=== PATIENT | female | born 1940 | race African-American/Black ===

== ENCOUNTER 2018-05-17 23:07 | Inpatient (IN) | payer MEDICARE, OTHER ==
[~2018-05-17] VITALS: Ht 162.6 cm; Wt 83.1 kg
[~2018-05-17 23:07] MED LIST: AMLO10TA12 PO; ATEN-60 PO; BUME2TAB3 PO; CELE200C PO; FERR324T4 PO; FURO80TA3 PO; GLIM1TAB2 PO; GLYB5TAB8 OR; LINA5TAB PO; LOSA-49 PO; METF-371 PO; METO-158 PO; PIOG1TAB36 OR; SIMV-8 PO; TERA5CAP42 PO
[2018-05-18] VITALS (7 sets, daily range): BP systolic 91–126; BP diastolic 46–60
[2018-05-18 00:25] LABS: Hematocrit 25.7 % (36.0-46.0); Hemoglobin 8.3 g/dL (12.2-16.2); Mean Corpuscular Hemoglobin 29.1 pg (28.0-32.0); Mean Corpuscular Hgb Conc. 32.3 g/dL (32.0-36.0); Mean Corpuscular Volume 90.3 fL (80.0-100.0); Platelet Count (auto) 215 10^3/uL (140-450); Red Blood Cells 2.85 10^6/uL (4.0-5.20); Red Cell Distribution Width 16.2 % (11.8-14.3); White Blood Cell 11.8 10^3/uL (4.4-10.8)
[2018-05-18 00:27] LABS: Basophils % (manual) 0 (0.0-2.0); Blast Cells 0; Metamyelocytes % 0; Myelocytes % 0; Promyelocytes % 0; Reactive Lymphocytes 0
[2018-05-18 00:44] LABS: Alanine Aminotransferase 12 U/L (13-56); Albumin 2.9 g/dL (3.4-5.0); Anion Gap 6 (5-15); BUN/Creatinine Ratio 8.8; Blood Urea Nitrogen 20 mg/dL (7-18); Calcium 7.5 mg/dL (8.5-10.1); Carbon Dioxide 28 mmol/L (21-32); Chloride 107 mmol/L (98-107); GFR African American 27 mL/min; GFR Non-African American 22 mL/min; Glucose 247 mg/dL (74-106); INR 1.14 (0.9-1.15); Magnesium 2.1 mg/dL (1.6-2.6); Partial Thromboplastin Time 36.1 sec (23.78-33.04); Potassium 3.5 mmol/L (3.5-5.1); Prothrombin Time 12.1 sec (9.27-12.13); Sodium 141 mmol/L (136-145)
[2018-05-18 00:52] LABS: Alkaline Phosphatase 71 U/L (45-117); Aspartate Aminotransferase 7 U/L (15-37); Bilirubin, Total 0.5 mg/dL (0.2-1.0); Total Protein 6.4 g/dL (6.4-8.2)
[2018-05-18 00:58] LABS: Band Neutrophils % (manual) 4; Eosinophils % (manual) 21 (0-7); Lymphocytes % (manual) 8 (10.0-50.0); Monocytes % (manual) 4 (0-12)
[2018-05-18] MEDS ORDERED: PANTOPRAZOLE 40 MG/10 ML VIAL IV ONE (01:30)
[2018-05-18] MEDS ORDERED: SODIUM CHLORIDE 0.9% 1,000 ML IV ONE (01:30)
[2018-05-18] MEDS ORDERED: cefTRIAXone 1GM/50ML D5W 50 ML IV ONE (03:00)
[2018-05-18] MEDS: metroNIDAZOLE 500 MG TAB PO ONE ×2 (03:00→04:57)
[2018-05-18] MEDS ORDERED: ALBUMIN 5% 250 ML IV ONE (05:00)
[2018-05-18] MEDS ORDERED: MORPHINE SULF INJ 2 MG/ML SYRINGE 1ML IV PRN (05:00)
[2018-05-18] MEDS ORDERED: NITROGLYCERIN 0.4 MG SL TAB SL PRN (05:00)
[2018-05-18] MEDS: SODIUM CHLORIDE 0.9% 1,000 ML IV SCH (05:00)
[2018-05-18] MEDS ORDERED: ACETAMINOPHEN 325 MG TAB PO PRN (05:00)
[2018-05-18] MEDS ORDERED: DEXTROSE (50%) 50ML SYRG IV PRN (05:00)
[2018-05-18] MEDS: metroNIDAZOLE 500MG/100ML 100 ML IV SCH ×3 (06:00→22:00)
[2018-05-18 06:25] LABS: Hematocrit 19.8 % (36.0-46.0)
[2018-05-18 06:29] LABS: Hemoglobin 6.5 g/dL (12.2-16.2)
[2018-05-18] MEDS: HYDROcodone-ACET 5/325MG TAB PO PRN (07:26)
[2018-05-18] MEDS: ACCU-CHEK COMFORT CURVE STRIP VI SCH ×4 (07:26→23:54)
[2018-05-18] MEDS: InsuLIN REG 1unit/0.01ml Soln (100units/ml) SC SCH ×4 (07:28→23:54)
[2018-05-18] MEDS ORDERED: OCTREOTIDE ACETATE 500 MCG in SODIUM CHL 0.9% 99 ML IV SCH (07:45)
[2018-05-18] MEDS: cefTRIAXone 1GM/50ML D5W 50 ML IV SCH (09:47)
[2018-05-18] MEDS ORDERED: PANTOPRAZOLE 40 MG/10 ML VIAL IV SCH (10:00)
[2018-05-18] MEDS: PANTOPRAZOLE 40 MG/10 ML VIAL IV SCH ×2 (10:23→22:00)
[2018-05-18 13:20] LABS: Hematocrit 26.7 % (36.0-46.0); Hemoglobin 8.3 g/dL (12.2-16.2)
[2018-05-18 18:53] LABS: Hematocrit 25.6 % (36.0-46.0); Hemoglobin 8.2 g/dL (12.2-16.2)
[2018-05-19] VITALS (15 sets, daily range): BP systolic 113–175; BP diastolic 49–77
[2018-05-19 01:06] LABS: Hemoglobin 6.4 g/dL (12.2-16.2)
[2018-05-19] MEDS: SODIUM CHLORIDE 0.9% 1,000 ML IV SCH (04:00)
[2018-05-19] MEDS: InsuLIN REG 1unit/0.01ml Soln (100units/ml) SC SCH ×3 (06:00→17:54)
[2018-05-19] MEDS: ACCU-CHEK COMFORT CURVE STRIP VI SCH ×3 (06:00→17:54)
[2018-05-19] MEDS: metroNIDAZOLE 500MG/100ML 100 ML IV SCH ×3 (06:49→22:30)
[2018-05-19 08:42] LABS: Basophils # (auto) 0.1 uL; Eosinophils # (auto) 2.2 uL; Hematocrit 24.5 % (36.0-46.0); Hemoglobin 7.9 g/dL (12.2-16.2); Lymphocytes # (auto) 1.8 uL; Monocytes # (auto) 0.9 uL; Monocytes % (auto) 6.4 % (0.0-12.0); Red Blood Cells 2.73 10^6/uL (4.0-5.20)
[2018-05-19 08:44] LABS: Basophils % (auto) 0.5 % (0.0-2.0); Eosinophils % (auto) 14.9 % (0.0-7.0); Lymphocytes % (auto) 12.4 % (10.0-50.0); Mean Corpuscular Hemoglobin 28.9 pg (28.0-32.0); Mean Corpuscular Hgb Conc. 32.2 g/dL (32.0-36.0); Mean Corpuscular Volume 89.6 fL (80.0-100.0); Neutrophils # (auto) 9.6 uL; Neutrophils % (auto) 65.8 % (37.0-80.0); Platelet Count (auto) 227 10^3/uL (140-450); Red Cell Distribution Width 15.6 % (11.8-14.3); White Blood Cell 14.5 10^3/uL (4.4-10.8)
[2018-05-19 08:54] LABS: Albumin 2.6 g/dL (3.4-5.0); Calcium 7.3 mg/dL (8.5-10.1); Potassium 3.9 mmol/L (3.5-5.1)
[2018-05-19 08:58] LABS: BUN/Creatinine Ratio 7.9; Bilirubin, Total 0.4 mg/dL (0.2-1.0); Total Protein 5.5 g/dL (6.4-8.2)
[2018-05-19] MEDS: cefTRIAXone 1GM/50ML D5W 50 ML IV SCH (10:29)
[2018-05-19] MEDS: PANTOPRAZOLE 40 MG/10 ML VIAL IV SCH ×2 (10:29→22:30)
[2018-05-19 14:35] LABS: Hematocrit 23.2 % (36.0-46.0); Hemoglobin 7.4 g/dL (12.2-16.2)
[2018-05-20] VITALS (10 sets, daily range): BP systolic 128–176; BP diastolic 62–73
[2018-05-20] MEDS: InsuLIN REG 1unit/0.01ml Soln (100units/ml) SC SCH ×4 (00:30→17:58)
[2018-05-20] MEDS: ACCU-CHEK COMFORT CURVE STRIP VI SCH ×4 (00:30→17:58)
[2018-05-20] MEDS: HYDROcodone-ACET 5/325MG TAB PO PRN (00:50)
[2018-05-20] MEDS: ONDANSETRON HCL 4 MG/2 ML VIAL IV PRN ×2 (04:52→16:40)
[2018-05-20] MEDS: metroNIDAZOLE 500MG/100ML 100 ML IV SCH ×3 (06:00→22:26)
[2018-05-20 06:57] LABS: White Blood Cell 13.4 10^3/uL (4.4-10.8)
[2018-05-20 06:59] LABS: Hematocrit 23.7 % (36.0-46.0); Hemoglobin 7.9 g/dL (12.2-16.2); Mean Corpuscular Hgb Conc. 33.3 g/dL (32.0-36.0); Mean Corpuscular Volume 90.1 fL (80.0-100.0); Platelet Count (auto) 177 10^3/uL (140-450); Red Blood Cells 2.63 10^6/uL (4.0-5.20); Red Cell Distribution Width 15.2 % (11.8-14.3)
[2018-05-20 07:00] LABS: Band Neutrophils % (manual) 0; Basophils % (manual) 0 (0.0-2.0); Blast Cells 0; Metamyelocytes % 0; Myelocytes % 0; Promyelocytes % 0; Reactive Lymphocytes 0
[2018-05-20] MEDS ORDERED: SODIUM CHL 0.9% 1000 ML BAG XX ONE (07:00)
[2018-05-20 07:29] LABS: Calcium 7.1 mg/dL (8.5-10.1); Potassium 3.8 mmol/L (3.5-5.1)
[2018-05-20] MEDS: cefTRIAXone 1GM/50ML D5W 50 ML IV SCH ×2 (08:40→09:35)
[2018-05-20] MEDS: PANTOPRAZOLE 40 MG/10 ML VIAL IV SCH ×3 (08:41→22:26)
[2018-05-20 11:48] LABS: Eosinophils % (manual) 18 (0-7); Lymphocytes % (manual) 10 (10.0-50.0); Monocytes % (manual) 2 (0-12)
[2018-05-20] MEDS ORDERED: EPOETIN ALFA 10,000 UNIT/1 ML VIAL SC ONE (21:00)
[2018-05-21] MEDS: ACCU-CHEK COMFORT CURVE STRIP VI SCH ×5 (00:36→23:13)
[2018-05-21 05:00] VITALS: BP 145/63
[2018-05-21] MEDS: metroNIDAZOLE 500MG/100ML 100 ML IV SCH ×3 (06:39→21:24)
[2018-05-21] MEDS: InsuLIN REG 1unit/0.01ml Soln (100units/ml) SC SCH ×5 (06:45→23:13)
[2018-05-21 07:09] LABS: Blood Urea Nitrogen 22 mg/dL (7-18); Calcium 7.4 mg/dL (8.5-10.1); Chloride 111 mmol/L (98-107); Potassium 4.2 mmol/L (3.5-5.1); Sodium 142 mmol/L (136-145)
[2018-05-21 07:13] LABS: Anion Gap 7 (5-15); BUN/Creatinine Ratio 6.9; Carbon Dioxide 24 mmol/L (21-32); GFR African American 18 mL/min; GFR Non-African American 15 mL/min; Glucose 153 mg/dL (74-106)
[2018-05-21 07:18] LABS: Hematocrit 23.6 % (36.0-46.0); Hemoglobin 7.1 g/dL (12.2-16.2); Mean Corpuscular Hemoglobin 29.7 pg (28.0-32.0); Mean Corpuscular Volume 98.7 fL (80.0-100.0); Platelet Count (auto) 149 10^3/uL (140-450); Red Cell Distribution Width 16.8 % (11.8-14.3); White Blood Cell 10.5 10^3/uL (4.4-10.8)
[2018-05-21 07:25] LABS: Band Neutrophils % (manual) 0; Basophils % (manual) 0 (0.0-2.0); Blast Cells 0; Metamyelocytes % 0; Myelocytes % 0; Promyelocytes % 0; Reactive Lymphocytes 0
[2018-05-21 08:00] VITALS: BP 155/67
[2018-05-21 09:00] VITALS: BP 155/67
[2018-05-21] MEDS: PANTOPRAZOLE 40 MG/10 ML VIAL IV SCH ×2 (09:13→21:24)
[2018-05-21] MEDS: cefTRIAXone 1GM/50ML D5W 50 ML IV SCH (09:18)
[2018-05-21 12:31] LABS: Lymphocytes % (manual) 14 (10.0-50.0); Monocytes % (manual) 3 (0-12)
[2018-05-21 12:32] LABS: Eosinophils % (manual) 24 (0-7)
[2018-05-21 13:00] VITALS: BP 154/80
[2018-05-21 17:00] VITALS: BP 164/87
[2018-05-21 21:31] LABS: Hematocrit 21.1 % (36.0-46.0); Hemoglobin 7.1 g/dL (12.2-16.2)
[2018-05-21 22:56] VITALS: BP 166/78
[2018-05-22] VITALS (10 sets, daily range): BP systolic 144–182; BP diastolic 64–88
[2018-05-22] MEDS: cloNIDine HCL 0.1 MG TAB PO PRN (04:41)
[2018-05-22] MEDS: metroNIDAZOLE 500MG/100ML 100 ML IV SCH ×2 (05:37→16:25)
[2018-05-22] MEDS: ACCU-CHEK COMFORT CURVE STRIP VI SCH ×3 (05:38→18:38)
[2018-05-22] MEDS: InsuLIN REG 1unit/0.01ml Soln (100units/ml) SC SCH ×3 (05:38→18:38)
[2018-05-22 07:14] LABS: BUN/Creatinine Ratio 6.3; Calcium 7.3 mg/dL (8.5-10.1); Potassium 4.1 mmol/L (3.5-5.1)
[2018-05-22 07:19] LABS: Mean Corpuscular Volume 90.1 fL (80.0-100.0); Red Cell Distribution Width 15.3 % (11.8-14.3); White Blood Cell 8.7 10^3/uL (4.4-10.8)
[2018-05-22 07:22] LABS: Hematocrit 18.2 % (36.0-46.0); Mean Corpuscular Hemoglobin 30.1 pg (28.0-32.0); Mean Corpuscular Hgb Conc. 33.4 g/dL (32.0-36.0); Platelet Count (auto) 154 10^3/uL (140-450); Red Blood Cells 2.02 10^6/uL (4.0-5.20)
[2018-05-22 07:35] LABS: Basophils % (manual) 0 (0.0-2.0); Blast Cells 0; Hemoglobin 6.1 g/dL (12.2-16.2); Metamyelocytes % 0; Promyelocytes % 0; Reactive Lymphocytes 0
[2018-05-22] MEDS ORDERED: HYDROcodone-ACET 5/325MG TAB PO PRN (09:30)
[2018-05-22 09:33] LABS: Band Neutrophils % (manual) 1; Eosinophils % (manual) 29 (0-7); Lymphocytes % (manual) 19 (10.0-50.0); Monocytes % (manual) 8 (0-12); Myelocytes % 2
[2018-05-22] MEDS ORDERED: MORPHINE SULF INJ 2 MG/ML SYRINGE 1ML IV PRN (10:00)
[2018-05-22] MEDS ORDERED: GOLYTELY 4L KIT PO ONE (10:15)
[2018-05-22] MEDS: cefTRIAXone 1GM/50ML D5W 50 ML IV SCH (10:44)
[2018-05-22] MEDS: PANTOPRAZOLE 40 MG/10 ML VIAL IV SCH (10:44)
[2018-05-22] MEDS: ONDANSETRON HCL 4 MG/2 ML VIAL IV PRN (23:25)
[2018-05-23] VITALS (7 sets, daily range): BP systolic 126–164; BP diastolic 48–79
[2018-05-23] MEDS: PANTOPRAZOLE 40 MG/10 ML VIAL IV SCH ×3 (00:10→21:42)
[2018-05-23] MEDS: metroNIDAZOLE 500MG/100ML 100 ML IV SCH ×4 (00:11→21:53)
[2018-05-23] MEDS: InsuLIN REG 1unit/0.01ml Soln (100units/ml) SC SCH ×5 (00:26→23:36)
[2018-05-23] MEDS: ACCU-CHEK COMFORT CURVE STRIP VI SCH ×5 (00:26→23:36)
[2018-05-23 06:55] LABS: Basophils # (auto) 0 uL; Basophils % (auto) 0.5 % (0.0-2.0); Hemoglobin 7.2 g/dL (12.2-16.2); Monocytes # (auto) 0.1 uL; Neutrophils # (auto) 7.9 uL; Neutrophils % (auto) 89.7 % (37.0-80.0)
[2018-05-23 06:57] LABS: Eosinophils # (auto) 0 uL; Eosinophils % (auto) 0.5 % (0.0-7.0); Lymphocytes # (auto) 0.8 uL; Lymphocytes % (auto) 8.6 % (10.0-50.0); Mean Corpuscular Hemoglobin 29.4 pg (28.0-32.0); Mean Corpuscular Hgb Conc. 32.8 g/dL (32.0-36.0); Mean Corpuscular Volume 89.6 fL (80.0-100.0); Monocytes % (auto) 0.7 % (0.0-12.0); Nucleated Red Blood Cells % 0.3 %; Platelet Count (auto) 154 10^3/uL (140-450); Red Blood Cells 2.46 10^6/uL (4.0-5.20); Red Cell Distribution Width 16.1 % (11.8-14.3); White Blood Cell 8.9 10^3/uL (4.4-10.8)
[2018-05-23] MEDS ORDERED: SODIUM CHL 0.9% 1000 ML BAG XX ONE (07:00)
[2018-05-23 07:12] LABS: Calcium 7.1 mg/dL (8.5-10.1); Potassium 5.2 mmol/L (3.5-5.1)
[2018-05-23 07:14] LABS: BUN/Creatinine Ratio 5.9
[2018-05-23] MEDS: cefTRIAXone 1GM/50ML D5W 50 ML IV SCH (09:53)
[2018-05-23] MEDS ORDERED: DexAMETHasone SOD PHOS 10MG/1ML VIAL INJ ONE (11:57)
[2018-05-23] MEDS ORDERED: fentaNYL CITRATE 100 MCG/2 ML VL ONE (11:57)
[2018-05-23] MEDS ORDERED: MIDAZOLAM HCL 1MG/1ML-2 ML VIAL ONE (11:57)
[2018-05-23] MEDS ORDERED: PROPOFOL 10 MG/ML 20 ML IV ONE (11:57)
[2018-05-23] MEDS ORDERED: ACCU-CHEK COMFORT CURVE STRIP VI ONE (13:30)
[2018-05-23] MEDS ORDERED: ePHEDrine SULFATE 50 MG/ML AMP IV PRN (13:30)
[2018-05-23] MEDS ORDERED: ONDANSETRON HCL 4 MG/2 ML VIAL IV ONE (13:30)
[2018-05-23] MEDS ORDERED: HYDROmorphone HCL 2 MG/ML VL IV PRN (13:30)
[2018-05-23] MEDS ORDERED: LABETALOL HCL 5 MG/ML 4ML SYRINGE IV PRN (13:30)
[2018-05-23] MEDS ORDERED: MIDAZOLAM HCL 1MG/1ML-2 ML VIAL IV PRN (13:30)
[2018-05-23] MEDS ORDERED: KETOROLAC TROMETH 30 MG/ML 1ML VIAL IV ONE (13:30)
[2018-05-23] MEDS ORDERED: MORPHINE SULFATE 4 MG/ML SYR/VIAL IV ONE (14:00)
[2018-05-23] MEDS ORDERED: InsuLIN REG 1unit/0.01ml Soln (100units/ml) IV ONE (16:45)
[2018-05-23] MEDS ORDERED: DEXTROSE (50%) 50ML SYRG IV ONE (16:45)
[2018-05-23] MEDS ORDERED: EPOETIN ALFA 10,000 UNIT/1 ML VIAL SC ONE (21:00)
[2018-05-23] MEDS: cloNIDine HCL 0.1 MG TAB PO PRN (21:53)
[2018-05-24] VITALS (11 sets, daily range): BP systolic 131–178; BP diastolic 64–93
[2018-05-24] MEDS: metroNIDAZOLE 500MG/100ML 100 ML IV SCH ×3 (06:08→21:56)
[2018-05-24] MEDS: InsuLIN REG 1unit/0.01ml Soln (100units/ml) SC SCH ×4 (06:09→23:37)
[2018-05-24] MEDS: ACCU-CHEK COMFORT CURVE STRIP VI SCH ×4 (06:09→23:37)
[2018-05-24 08:29] LABS: Basophils # (auto) 0.1 uL; Eosinophils # (auto) 0.1 uL; Monocytes # (auto) 0.6 uL; Nucleated Red Blood Cells % 0.3 %; Platelet Count (auto) 201 10^3/uL (140-450)
[2018-05-24 08:30] LABS: Basophils % (auto) 0.9 % (0.0-2.0); Hematocrit 18.3 % (36.0-46.0); Lymphocytes # (auto) 1.5 uL; Lymphocytes % (auto) 14.2 % (10.0-50.0); Mean Corpuscular Hemoglobin 30.6 pg (28.0-32.0); Mean Corpuscular Hgb Conc. 33.4 g/dL (32.0-36.0); Mean Corpuscular Volume 91.5 fL (80.0-100.0); Neutrophils # (auto) 8.3 uL; Neutrophils % (auto) 77.9 % (37.0-80.0); Red Cell Distribution Width 16.5 % (11.8-14.3); White Blood Cell 10.6 10^3/uL (4.4-10.8)
[2018-05-24] MEDS ORDERED: SODIUM CHL 0.9% 1000 ML BAG XX ONE (08:30)
[2018-05-24 08:35] LABS: Hemoglobin 6.1 g/dL (12.2-16.2)
[2018-05-24 08:47] LABS: BUN/Creatinine Ratio 6.4; Calcium 7.5 mg/dL (8.5-10.1); Potassium 4.6 mmol/L (3.5-5.1)
[2018-05-24] MEDS: cefTRIAXone 1GM/50ML D5W 50 ML IV SCH (09:31)
[2018-05-24] MEDS: PANTOPRAZOLE 40 MG/10 ML VIAL IV SCH ×2 (09:31→21:56)
[2018-05-24] MEDS ORDERED: EPOETIN ALFA 10,000 UNIT/1 ML VIAL SC ONE (21:00)
[2018-05-24 21:13] LABS: Hematocrit 26.8 % (36.0-46.0); Hemoglobin 8.7 g/dL (12.2-16.2)
[2018-05-24] MEDS: cloNIDine HCL 0.1 MG TAB PO PRN (22:42)
[2018-05-25 04:50] VITALS: BP 167/77
[2018-05-25] MEDS: InsuLIN REG 1unit/0.01ml Soln (100units/ml) SC SCH ×4 (06:00→23:23)
[2018-05-25] MEDS: ACCU-CHEK COMFORT CURVE STRIP VI SCH ×4 (06:14→23:23)
[2018-05-25] MEDS ORDERED: CATHFLO ACTIVASE (ALTEPLASE) 2 MG VIAL IV ONE ×2 (06:15→14:30)
[2018-05-25] MEDS: metroNIDAZOLE 500MG/100ML 100 ML IV SCH ×3 (07:01→21:44)
[2018-05-25 07:50] VITALS: BP 161/73
[2018-05-25] MEDS: cefTRIAXone 1GM/50ML D5W 50 ML IV SCH (08:41)
[2018-05-25] MEDS ORDERED: amLODIPine BESYLATE 5 MG TAB PO ONE (10:45)
[2018-05-25] MEDS ORDERED: LORazepam 0.5 MG TAB PO ONE (10:45)
[2018-05-25] MEDS ORDERED: MORPHINE SULF INJ 2 MG/ML SYRINGE 1ML IV PRN (11:00)
[2018-05-25 11:43] VITALS: BP 163/79
[2018-05-25 13:34] LABS: Hemoglobin 7.8 g/dL (12.2-16.2); Red Cell Distribution Width 16.4 % (11.8-14.3)
[2018-05-25 13:35] LABS: Hematocrit 23.5 % (36.0-46.0); Mean Corpuscular Hemoglobin 30.5 pg (28.0-32.0); Mean Corpuscular Hgb Conc. 33.1 g/dL (32.0-36.0); Mean Corpuscular Volume 92.2 fL (80.0-100.0); Platelet Count (auto) 72 10^3/uL (140-450); Red Blood Cells 2.54 10^6/uL (4.0-5.20); White Blood Cell 11.7 10^3/uL (4.4-10.8)
[2018-05-25 13:43] LABS: Basophils % (manual) 0 (0.0-2.0); Blast Cells 0; Metamyelocytes % 0; Myelocytes % 0; Promyelocytes % 0; Reactive Lymphocytes 0
[2018-05-25] MEDS ORDERED: LORazepam 0.5 MG TAB PO PRN (14:00)
[2018-05-25 14:08] LABS: Band Neutrophils % (manual) 1; Eosinophils % (manual) 13 (0-7); Lymphocytes % (manual) 14 (10.0-50.0); Monocytes % (manual) 3 (0-12)
[2018-05-25] MEDS ORDERED: GOLYTELY 4L KIT PO ONE (14:30)
[2018-05-25] MEDS ORDERED: IOHEXOL 350 MG/ML 100ML IJ ONE (16:18)
[2018-05-25 16:38] VITALS: BP 159/93
[2018-05-25] MEDS: cloNIDine HCL 0.1 MG TAB PO PRN (21:07)
[2018-05-25 22:00] VITALS: BP 183/80
[2018-05-25 22:21] VITALS: BP 159/63
[2018-05-25 22:42] LABS: Albumin 2.6 g/dL (3.4-5.0); Potassium 4.1 mmol/L (3.5-5.1)
[2018-05-25 22:43] LABS: INR 1.07 (0.9-1.15); Partial Thromboplastin Time 23.8 sec (23.78-33.04); Prothrombin Time 11.4 sec (9.27-12.13)
[2018-05-25 22:45] LABS: BUN/Creatinine Ratio 5.1; Bilirubin, Total 0.3 mg/dL (0.2-1.0); Total Protein 4.6 g/dL (6.4-8.2)
[2018-05-26] VITALS (8 sets, daily range): BP systolic 144–186; BP diastolic 65–77
[2018-05-26] MEDS: InsuLIN REG 1unit/0.01ml Soln (100units/ml) SC SCH ×3 (06:00→18:00)
[2018-05-26] MEDS: ACCU-CHEK COMFORT CURVE STRIP VI SCH ×3 (06:09→18:00)
[2018-05-26] MEDS: metroNIDAZOLE 500MG/100ML 100 ML IV SCH ×3 (06:09→22:18)
[2018-05-26 06:29] LABS: Basophils # (auto) 0.1 uL
[2018-05-26 06:59] LABS: % Iron Saturation 30.6 % (15-50)
[2018-05-26] MEDS ORDERED: SODIUM CHL 0.9% 1000 ML BAG XX ONE (07:00)
[2018-05-26 07:32] LABS: Monocytes # (auto) 0.7 uL
[2018-05-26 07:37] LABS: Basophils % (auto) 1.2 % (0.0-2.0); Eosinophils # (auto) 2.3 uL; Hematocrit 21.2 % (36.0-46.0); Lymphocytes # (auto) 1.2 uL; Lymphocytes % (auto) 11.1 % (10.0-50.0); Mean Corpuscular Hemoglobin 30.1 pg (28.0-32.0); Mean Corpuscular Volume 91.2 fL (80.0-100.0); Monocytes % (auto) 6.7 % (0.0-12.0); Neutrophils # (auto) 6.7 uL; Neutrophils % (auto) 60.6 % (37.0-80.0); Nucleated Red Blood Cells % 0.3 %; Platelet Count (auto) 199 10^3/uL (140-450); Red Blood Cells 2.33 10^6/uL (4.0-5.20); Red Cell Distribution Width 16.1 % (11.8-14.3); White Blood Cell 11.1 10^3/uL (4.4-10.8)
[2018-05-26 07:52] LABS: Eosinophils % (auto) 20.4 % (0.0-7.0)
[2018-05-26] MEDS ORDERED: MIDAZOLAM HCL 5 MG/ML-1ML VIAL ONE (08:33)
[2018-05-26] MEDS ORDERED: SODIUM CHLORIDE LOCK 10 ML ONE (08:33)
[2018-05-26] MEDS ORDERED: fentaNYL CITRATE 100 MCG/2 ML VL ONE (08:33)
[2018-05-26] MEDS ORDERED: diphenhdrAMINE HCL 50 MG/1 ML VL ONE ×2 (08:33→09:24)
[2018-05-26] MEDS: cefTRIAXone 1GM/50ML D5W 50 ML IV SCH (09:00)
[2018-05-26] MEDS ORDERED: HYDROmorphone HCL 2 MG/ML VL IV PRN (09:15)
[2018-05-26] MEDS ORDERED: ONDANSETRON HCL 4 MG/2 ML VIAL IV ONE (09:15)
[2018-05-26] MEDS ORDERED: ACCU-CHEK COMFORT CURVE STRIP VI ONE (09:15)
[2018-05-26] MEDS ORDERED: NALOXONE HCL 0.4 MG/ML VIAL IV PRN (09:15)
[2018-05-26] MEDS ORDERED: MIDAZOLAM HCL 1MG/1ML-2 ML VIAL ONE (09:24)
[2018-05-26] MEDS ORDERED: LIDOCAINE 2% (LOCAL ANESTH.) PF 5ml SDV ONE (09:24)
[2018-05-26] MEDS ORDERED: METOCLOPRAMIDE HCL 5MG/ml INJ 2ml VIAL ONE (09:24)
[2018-05-26] MEDS ORDERED: GLYCOPYRROLATE 0.2 MG/ML 1ML VIAL ONE (09:24)
[2018-05-26] MEDS ORDERED: PROPOFOL 10 MG/ML 20 ML IV ONE (09:26)
[2018-05-26] MEDS: amLODIPine BESYLATE 5 MG TAB PO SCH (10:00)
[2018-05-26] MEDS: PANTOPRAZOLE 40 MG TAB PO SCH (10:00)
[2018-05-26] MEDS: cloNIDine HCL 0.1 MG TAB PO PRN ×2 (13:31→22:09)
[2018-05-26] MEDS ORDERED: EPOETIN ALFA 10,000 UNIT/1 ML VIAL SC ONE (21:00)
[2018-05-27] VITALS (7 sets, daily range): BP systolic 132–197; BP diastolic 68–89
[2018-05-27] MEDS: ACCU-CHEK COMFORT CURVE STRIP VI SCH ×4 (00:21→18:00)
[2018-05-27] MEDS: cloNIDine HCL 0.1 MG TAB PO PRN ×3 (02:36→22:16)
[2018-05-27] MEDS ORDERED: hydrALAZINE HCL 20 MG/ML VL IV ONE (04:00)
[2018-05-27] MEDS: InsuLIN REG 1unit/0.01ml Soln (100units/ml) SC SCH ×4 (06:00→18:00)
[2018-05-27] MEDS: metroNIDAZOLE 500MG/100ML 100 ML IV SCH ×3 (06:38→22:17)
[2018-05-27 06:57] LABS: Basophils # (auto) 0.1 uL; Basophils % (auto) 1.3 % (0.0-2.0); Eosinophils # (auto) 1.3 uL; Eosinophils % (auto) 12.7 % (0.0-7.0); Hematocrit 29.8 % (36.0-46.0); Hemoglobin 10.1 g/dL (12.2-16.2); Lymphocytes # (auto) 1.2 uL; Mean Corpuscular Hemoglobin 30.1 pg (28.0-32.0); Mean Corpuscular Hgb Conc. 33.9 g/dL (32.0-36.0); Mean Corpuscular Volume 88.7 fL (80.0-100.0); Monocytes # (auto) 0.6 uL; Monocytes % (auto) 5.2 % (0.0-12.0); Neutrophils # (auto) 7.3 uL; Neutrophils % (auto) 69.8 % (37.0-80.0); Nucleated Red Blood Cells % 0.1 %; Platelet Count (auto) 192 10^3/uL (140-450); Red Blood Cells 3.35 10^6/uL (4.0-5.20); Red Cell Distribution Width 15.8 % (11.8-14.3); White Blood Cell 10.5 10^3/uL (4.4-10.8)
[2018-05-27] MEDS: cefTRIAXone 1GM/50ML D5W 50 ML IV SCH (10:21)
[2018-05-27] MEDS: amLODIPine BESYLATE 5 MG TAB PO SCH (10:22)
[2018-05-27] MEDS: PANTOPRAZOLE 40 MG TAB PO SCH (10:22)
[2018-05-27 22:05] LABS: Hematocrit 31.2 % (36.0-46.0); Hemoglobin 10.4 g/dL (12.2-16.2)
[2018-05-27] MEDS: HYDROcodone-ACET 5/325MG TAB PO PRN (22:17)
[2018-05-28] MEDS: ACCU-CHEK COMFORT CURVE STRIP VI SCH ×4 (00:04→17:38)
[2018-05-28] MEDS ORDERED: hydrALAZINE HCL 20 MG/ML VL IV ONE (00:45)
[2018-05-28] MEDS: InsuLIN REG 1unit/0.01ml Soln (100units/ml) SC SCH ×4 (00:53→17:38)
[2018-05-28 05:49] VITALS: BP 175/57
[2018-05-28] MEDS: metroNIDAZOLE 500MG/100ML 100 ML IV SCH ×3 (06:11→22:37)
[2018-05-28] MEDS: cloNIDine HCL 0.1 MG TAB PO PRN (06:15)
[2018-05-28] MEDS: HYDROcodone-ACET 5/325MG TAB PO PRN ×3 (06:17→22:52)
[2018-05-28 09:00] VITALS: BP 156/56
[2018-05-28] MEDS: cefTRIAXone 1GM/50ML D5W 50 ML IV SCH (09:00)
[2018-05-28 09:03] LABS: Hematocrit 28.2 % (36.0-46.0); Hemoglobin 9.6 g/dL (12.2-16.2); Mean Corpuscular Hemoglobin 30.4 pg (28.0-32.0); Mean Corpuscular Volume 89.6 fL (80.0-100.0); Platelet Count (auto) 194 10^3/uL (140-450); Red Blood Cells 3.15 10^6/uL (4.0-5.20); Red Cell Distribution Width 17.1 % (11.8-14.3); White Blood Cell 9.5 10^3/uL (4.4-10.8)
[2018-05-28 09:14] LABS: Band Neutrophils % (manual) 0; Basophils % (manual) 0 (0.0-2.0); Blast Cells 0; Metamyelocytes % 0; Myelocytes % 0; Promyelocytes % 0; Reactive Lymphocytes 0
[2018-05-28 09:26] LABS: BUN/Creatinine Ratio 4.3; Calcium 7.1 mg/dL (8.5-10.1); Potassium 3.6 mmol/L (3.5-5.1)
[2018-05-28 09:43] LABS: Lymphocytes % (manual) 12 (10.0-50.0); Monocytes % (manual) 2 (0-12)
[2018-05-28 09:44] LABS: Eosinophils % (manual) 18 (0-7)
[2018-05-28] MEDS: PANTOPRAZOLE 40 MG TAB PO SCH (10:00)
[2018-05-28] MEDS: amLODIPine BESYLATE 5 MG TAB PO SCH (10:00)
[2018-05-28 13:00] VITALS: BP 135/66
[2018-05-28 17:00] VITALS: BP 158/93
[2018-05-28 22:00] VITALS: BP 159/71
[2018-05-29] MEDS: ACCU-CHEK COMFORT CURVE STRIP VI SCH ×4 (00:08→18:09)
[2018-05-29 05:00] VITALS: BP 158/60
[2018-05-29] MEDS: InsuLIN REG 1unit/0.01ml Soln (100units/ml) SC SCH ×4 (06:00→18:09)
[2018-05-29] MEDS: metroNIDAZOLE 500MG/100ML 100 ML IV SCH ×3 (06:13→22:04)
[2018-05-29 08:34] VITALS: BP 185/76
[2018-05-29] MEDS ORDERED: MORPHINE SULF INJ 2 MG/ML SYRINGE 1ML IV PRN (09:30)
[2018-05-29 09:45] LABS: Basophils # (auto) 0.1 uL; Basophils % (auto) 0.9 % (0.0-2.0); Eosinophils # (auto) 1.2 uL; Eosinophils % (auto) 11.4 % (0.0-7.0); Hematocrit 31.2 % (36.0-46.0); Hemoglobin 10.3 g/dL (12.2-16.2); Lymphocytes # (auto) 0.9 uL; Lymphocytes % (auto) 8.2 % (10.0-50.0); Mean Corpuscular Hemoglobin 29.6 pg (28.0-32.0); Mean Corpuscular Hgb Conc. 32.9 g/dL (32.0-36.0); Mean Corpuscular Volume 90.2 fL (80.0-100.0); Monocytes # (auto) 0.7 uL; Monocytes % (auto) 6.2 % (0.0-12.0); Neutrophils # (auto) 7.8 uL; Neutrophils % (auto) 73.3 % (37.0-80.0); Platelet Count (auto) 223 10^3/uL (140-450); Red Blood Cells 3.46 10^6/uL (4.0-5.20); Red Cell Distribution Width 17.5 % (11.8-14.3); White Blood Cell 10.6 10^3/uL (4.4-10.8)
[2018-05-29] MEDS ORDERED: METOPROLOL TARTRATE 25 MG TAB PO SCH (10:00)
[2018-05-29 10:12] LABS: Albumin 2.5 g/dL (3.4-5.0); BUN/Creatinine Ratio 3.2; Calcium 7.4 mg/dL (8.5-10.1); Potassium 3.3 mmol/L (3.5-5.1)
[2018-05-29 10:15] LABS: Bilirubin, Total 0.5 mg/dL (0.2-1.0); Total Protein 5.3 g/dL (6.4-8.2)
[2018-05-29] MEDS: amLODIPine BESYLATE 5 MG TAB PO SCH (10:56)
[2018-05-29] MEDS: PANTOPRAZOLE 40 MG TAB PO SCH (10:57)
[2018-05-29] MEDS: HYDROcodone-ACET 5/325MG TAB PO PRN ×2 (11:00→18:41)
[2018-05-29] MEDS ORDERED: POTASSIUM CHL 20 Meq TABLET PO ONE (11:45)
[2018-05-29 12:04] VITALS: BP 116/77
[2018-05-29 16:58] VITALS: BP 163/79
[2018-05-29] MEDS: cloNIDine HCL 0.1 MG TAB PO PRN (18:10)
[2018-05-29 22:00] VITALS: BP 153/67
[2018-05-30] MEDS: ACCU-CHEK COMFORT CURVE STRIP VI SCH ×4 (00:04→18:00)
[2018-05-30] MEDS: HYDROcodone-ACET 5/325MG TAB PO PRN ×5 (00:08→16:32)
[2018-05-30 05:00] VITALS: BP 150/81
[2018-05-30] MEDS: InsuLIN REG 1unit/0.01ml Soln (100units/ml) SC SCH ×4 (05:38→18:00)
[2018-05-30] MEDS: metroNIDAZOLE 500MG/100ML 100 ML IV SCH ×2 (05:38→14:34)
[2018-05-30 09:00] VITALS: BP 177/77
[2018-05-30] MEDS ORDERED: cefTRIAXone 1GM/50ML D5W 50 ML IV SCH (09:00)
[2018-05-30] MEDS: amLODIPine BESYLATE 5 MG TAB PO SCH (09:56)
[2018-05-30] MEDS: PANTOPRAZOLE 40 MG TAB PO SCH (09:57)
[2018-05-30 10:30] LABS: Hematocrit 31.6 % (36.0-46.0); Hemoglobin 10.3 g/dL (12.2-16.2)
[2018-05-30 13:00] VITALS: BP 112/76
[2018-05-30] MEDS ORDERED: cloNIDine HCL 0.1 MG TAB PO SCH (14:00)
[2018-05-30 18:56] VITALS: BP 112/76
== END 2018-05-30 20:30 | disposition short-term general hospital (02) | DRG 377 ==
LOC: EDBD 23:07 → ER 23:09 → TELE 05-18 06:37 → TELE-EAST 05-18 20:40
PROVIDERS: ADMIT Nurse Practitioner; ATTEND Internal Medicine
PROC: 30233N1 Transfusion of Nonautologous Red Blood Cells into Peripheral Vein, Percutaneous Approach (ICD-10-PCS; principal; 2018-05-18)
PROC: 5A1D70Z Performance of Urinary Filtration, Intermittent, Less than 6 Hours Per Day (ICD-10-PCS; 2018-05-20)
PROC: 0DJD8ZZ Inspection of Lower Intestinal Tract, Via Natural or Artificial Opening Endoscopic (ICD-10-PCS; 2018-05-23)
PROC: 5A1D70Z Performance of Urinary Filtration, Intermittent, Less than 6 Hours Per Day (ICD-10-PCS; 2018-05-24)
PROC: 0DJD8ZZ Inspection of Lower Intestinal Tract, Via Natural or Artificial Opening Endoscopic (ICD-10-PCS; 2018-05-26)
PROC: 5A1D70Z Performance of Urinary Filtration, Intermittent, Less than 6 Hours Per Day (ICD-10-PCS; 2018-05-26)
PROC: 5A1D70Z Performance of Urinary Filtration, Intermittent, Less than 6 Hours Per Day (ICD-10-PCS; 2018-05-28)
DX: K57.33 Diverticulitis of large intestine without perforation or abscess with bleeding (principal); N18.6 End stage renal disease; R65.11 Systemic inflammatory response syndrome (SIRS) of non-infectious origin with acute organ dysfunction; E44.0 Moderate protein-calorie malnutrition; I12.0 Hypertensive chronic kidney disease with stage 5 chronic kidney disease or end stage renal disease; I95.9 Hypotension, unspecified; K52.9 Noninfective gastroenteritis and colitis, unspecified; E11.22 Type 2 diabetes mellitus with diabetic chronic kidney disease; E11.65 Type 2 diabetes mellitus with hyperglycemia; K92.2 Gastrointestinal hemorrhage, unspecified; K64.8 Other hemorrhoids; E87.5 Hyperkalemia; D50.0 Iron deficiency anemia secondary to blood loss (chronic); J45.909 Unspecified asthma, uncomplicated; K64.4 Residual hemorrhoidal skin tags; Z79.899 Other long term (current) drug therapy; Z88.6 Allergy status to analgesic agent; Z99.2 Dependence on renal dialysis
CPT/HCPCS: 36415; 36430; 71045; 74176; 78278; 80048; 80053; 82270; 82728; 82962; 83036; 83540; 83550; 83690; 83735; 84132; 84484; 85007; 85014; 85018; 85025; 85027; 85610; 85730; 86850; 86900; 86901; 86920; 87040; 90935; 93005; 93306; 96361; 96365; 96375; A9560; C9113; G0378; J0696; J0885; J1100; J1642; J1815; J2001; J2250; J2405; J2704; J3490

== ENCOUNTER 2018-06-02 19:30 | Inpatient (IN) | payer MEDICARE, OTHER | END 2018-06-02 20:15 | disposition left against medical advice (07) | LOC: TELE-EAST 19:30 ==

== ENCOUNTER 2018-06-20 12:14 | Inpatient (IN) | payer MEDICARE, OTHER ==
[~2018-06-20] VITALS: Ht 162.6 cm; Wt 84.0 kg
[2018-06-20] MEDS ORDERED: SODIUM CHLORIDE 0.9% 1,000 ML IV ONE ×2 (15:39)
[2018-06-20 16:51] LABS: Basophils # (auto) 0 uL; Basophils % (auto) 0.4 % (0.0-2.0); Eosinophils % (auto) 9.8 % (0.0-7.0); Hemoglobin 12.2 g/dL (12.2-16.2); Lymphocytes # (auto) 0.7 uL; Lymphocytes % (auto) 6.8 % (10.0-50.0); Mean Corpuscular Hemoglobin 28.7 pg (28.0-32.0); Mean Corpuscular Hgb Conc. 32.9 g/dL (32.0-36.0); Monocytes # (auto) 0.4 uL; Monocytes % (auto) 3.7 % (0.0-12.0); Neutrophils # (auto) 7.9 uL; Neutrophils % (auto) 79.3 % (37.0-80.0); Platelet Count (auto) 232 10^3/uL (140-450); Red Blood Cells 4.25 10^6/uL (4.0-5.20); Red Cell Distribution Width 16.4 % (11.8-14.3)
[2018-06-20 17:22] LABS: Partial Thromboplastin Time 32.4 sec (23.78-33.04); Prothrombin Time 10.7 sec (9.27-12.13)
[2018-06-20 18:02] LABS: Albumin 2.6 g/dL (3.4-5.0); Anion Gap 8 (5-15); Blood Urea Nitrogen 28 mg/dL (7-18); Calcium 8.9 mg/dL (8.5-10.1); Carbon Dioxide 27 mmol/L (21-32); Chloride 106 mmol/L (98-107); Glucose 128 mg/dL (74-106); Potassium 3.5 mmol/L (3.5-5.1); Sodium 141 mmol/L (136-145)
[2018-06-20 18:06] LABS: BUN/Creatinine Ratio 13.3; GFR African American 29 mL/min; GFR Non-African American 24 mL/min
[2018-06-20 18:09] LABS: Alanine Aminotransferase 16 U/L (13-56); Alkaline Phosphatase 88 U/L (45-117); Aspartate Aminotransferase 15 U/L (15-37); Bilirubin, Total 0.3 mg/dL (0.2-1.0); Total Protein 6.8 g/dL (6.4-8.2)
[2018-06-20] MEDS ORDERED: DEXTROSE (50%) 50ML SYRG IV PRN (19:15)
[2018-06-20] MEDS ORDERED: MORPHINE SULF INJ 2 MG/ML SYRINGE 1ML IV PRN (19:15)
[2018-06-20] MEDS ORDERED: NITROGLYCERIN 0.4 MG SL TAB SL PRN (19:15)
[2018-06-20] MEDS ORDERED: LACTULOSE 20Gm/30ML SOLN PO ONE (19:15)
[2018-06-20] MEDS ORDERED: POLYETHYLENE GLYCOL 17 GM PWDR PO PRN (19:15)
[2018-06-20] MEDS ORDERED: LACTULOSE 20Gm/30ML SOLN PO PRN (19:15)
--- NOTE | 2018-06-20 19:25 | NUR ---
Telemetry admit from ER Patient admitted to Telemetry unit and oriented to primary RN, unit, room, bed, and unit policies regarding patient care and visiting hours. Patient now on continuous telemetry monitoring, tele box # 20 and telemetry reading on arrival to unit is sinus rhythm in the 80s. Patient placed on bedside oxygen at 2 l/min NC, weighed by bedscale and encouraged to call if they need something. Bed is in lowest position and locked. Call light within reach. Board updated. All questions and concerns addressed, patient verbalized understanding. Addendum: 06/21/18 at 0140 by ALLYSON TURPIN RN Time is 2024, not 1924
[2018-06-20] MEDS: MORPHINE SULF INJ 2 MG/ML SYRINGE 1ML IV PRN ×2 (19:57→23:48)
[2018-06-20] MEDS: ONDANSETRON HCL 4 MG/2 ML VIAL IV PRN (19:57)
[2018-06-20 20:30] VITALS: BP 142/67
[2018-06-20 22:00] VITALS: BP 142/67
[2018-06-20] MEDS: InsuLIN REG 1unit/0.01ml Soln (100units/ml) SC SCH (22:00)
[2018-06-20] MEDS: DOCUSATE SOD 100 MG CAP PO SCH (22:29)
[2018-06-20] MEDS: ATORVASTATIN 20 MG TAB PO SCH (22:29)
[2018-06-20] MEDS: METOPROLOL TARTRATE 50 MG TAB PO SCH (22:29)
[2018-06-20] MEDS: metroNIDAZOLE 500MG/100ML 100 ML IV SCH (22:29)
[2018-06-20] MEDS: ACCU-CHEK COMFORT CURVE STRIP VI SCH (22:30)
[2018-06-21] MEDS: HYDROcodone-ACET 5/325MG TAB PO PRN (01:08)
[2018-06-21] MEDS: MORPHINE SULF INJ 2 MG/ML SYRINGE 1ML IV PRN (04:12)
[2018-06-21 05:00] VITALS: BP 130/60
--- NOTE | 2018-06-21 05:38 | NUR ---
Patient began to have leyla red bleeding from external hemorrhoids. There was a profuse amount of blood with clots. Patient is still have some slight continued bleeding coming directly from the rectum but not as heavily as before. Patient had a BM prior to start of bleeding and had a recent admission for rectal bleeding at this hospital. VS: BP: 158/73, HR: 76, RR: 20, O2 Sat: 97% on 2 l/min NC. Patient appears pale and is reporting some nausea and dizziness. Will contact hospitalist.
--- NOTE | 2018-06-21 05:42 | NUR ---
Paged Hospitalist regarding bleeding. Awaiting call back.
[2018-06-21] MEDS: InsuLIN REG 1unit/0.01ml Soln (100units/ml) SC SCH ×4 (05:44→22:05)
[2018-06-21] MEDS: ACCU-CHEK COMFORT CURVE STRIP VI SCH ×4 (05:44→21:52)
[2018-06-21] MEDS: ONDANSETRON HCL 4 MG/2 ML VIAL IV PRN ×3 (05:44→19:38)
[2018-06-21] MEDS: metroNIDAZOLE 500MG/100ML 100 ML IV SCH ×3 (05:44→21:51)
--- NOTE | 2018-06-21 06:10 | NUR ---
Spoke to CATIA Alvares who ordered a GI Consult, a STAT Type and Screen, and to give 2 units of Packed RBCs if Hgb test from this morning taken after she began bleeding is less than 7.0.
[2018-06-21 06:25] LABS: Basophils # (auto) 0 uL; Basophils % (auto) 0.4 % (0.0-2.0); Eosinophils # (auto) 1.3 uL; Eosinophils % (auto) 12.9 % (0.0-7.0); Hematocrit 31.7 % (36.0-46.0); Hemoglobin 10.4 g/dL (12.2-16.2); Lymphocytes # (auto) 0.9 uL; Lymphocytes % (auto) 9.4 % (10.0-50.0); Mean Corpuscular Hemoglobin 28.6 pg (28.0-32.0); Mean Corpuscular Hgb Conc. 32.7 g/dL (32.0-36.0); Mean Corpuscular Volume 87.3 fL (80.0-100.0); Monocytes # (auto) 0.6 uL; Monocytes % (auto) 6.4 % (0.0-12.0); Neutrophils # (auto) 7.1 uL; Neutrophils % (auto) 70.9 % (37.0-80.0); Platelet Count (auto) 271 10^3/uL (140-450); Red Blood Cells 3.63 10^6/uL (4.0-5.20); Red Cell Distribution Width 16.1 % (11.8-14.3); White Blood Cell 10.1 10^3/uL (4.4-10.8)
[2018-06-21 06:41] LABS: BUN/Creatinine Ratio 13.2; Calcium 7.8 mg/dL (8.5-10.1); Potassium 3.9 mmol/L (3.5-5.1)
--- NOTE | 2018-06-21 06:48 | NUR ---
IV Infiltration IV to right upper arm infiltrated. IV catheter removed, 22 gauge, catheter intact on removal. Warm compress placed to site and arm raised. Patient tolerated well.
--- NOTE | 2018-06-21 07:07 | NUR ---
Spoke to CATIA Alvares regarding the new hemoglobin levels and she ordered another hemoglobin and hematocrit test at 1200.
--- NOTE | 2018-06-21 07:33 | NUR ---
Spoke to Mingo, patient's son and NOK, to inform him of the patient's change in status. Mingo will be coming to visit her soon during visiting hours.
--- NOTE | 2018-06-21 07:35 | NUR ---
Opening Shift Note Assumed care of patient, awake and alert. No S/S of distress/SOB or pain. Patient still with leyla red bleeding from hemorrhoids. Instructed on POC and to call for assist PRN, will continue to monitor for changes Q1hr and PRN.
[2018-06-21 08:00] VITALS: BP 98/49
--- NOTE | 2018-06-21 08:20 | NUR ---
IV insertion IV access obtained, via clean sterile technique by inserting 22 gauge catheter at right wrist. IV secured properly. No trauma to site. Patient tolerated well. NOTE: []
[2018-06-21 09:00] VITALS: BP 98/44
[2018-06-21] MEDS: METOPROLOL TARTRATE 50 MG TAB PO SCH ×2 (09:41→21:50)
[2018-06-21] MEDS: DOCUSATE SOD 100 MG CAP PO SCH ×2 (09:41→21:51)
[2018-06-21] MEDS: SEVELAMER 800 MG TAB PO SCH ×3 (09:41→18:31)
[2018-06-21] MEDS: PANTOPRAZOLE 40 MG TAB PO SCH (09:41)
[2018-06-21] MEDS ORDERED: SODIUM CHL 0.9% 1000 ML BAG XX ONE (10:45)
--- NOTE | 2018-06-21 11:15 | NUR ---
WOUND CARE NOTE: IN TO SEE PATIENT AT THIS TIME PER WOUND CARE CONSULT REQUEST. PATIENT WAS NOTED UPON ADMIT, TO HAVE WOUNDS TO BILATERAL SACRUM/BUTTOCKS. WOUND PHOTOS TAKEN AT THAT TIME BY BEDSIDE NURSE, WOUND CONSULT ORDERED. PATIENT ADMITTED TO [facility] WITH DIAGNOSIS OF ABDOMINAL PAIN. CURRENT RIRI SCORE IS 14. PATIENT IS ABLE TO SELF TURN/REPOSITION SELF. SHE STATES THAT SHE WEARS A DIAPER AT HOME. PATIENT CURRENTLY IS BLEEDING FROM HER RECTAL HEMORRHOIDS. GI CONSULT IS PENDING. PATIENT EDUCATED ON DIAPER USE AND SKIN INTEGRITY. PATIENT VERBALIZED UNDERSTANDING. PATIENT APPEARS TO HAVE DTI'S TO BILATERAL SACRUM/BUTTOCKS. WOUND HAS EVOLVED OPEN TO MULTIPLE STAGE 2/3 PRESSURE ULCERS. PATIENT WOULD BENEFIT FROM SPECIALTY AIR MATTRESS (ORDERED), FREQUENT TURN SCHEDULE Q 2 HOURS, PRN CONDITION PERMITS, WITH PRESSURE REDISTRIBUTION USING PILLOWS/WEDGES, DAILY/PRN DRESSING CHANGE TO SACRAL WOUNDS WITH THERAHONEY, OPTIFOAM GENTLE SACRAL DRESSINGS, DIETARY CONSULT FOR WOUNDS, SKIN/WOUND CARE PLAN (IMPLEMENTED), CONTINUED MONITORING BY WOUND CARE TEAM. Addendum: 06/21/18 at 1533 by Caren Moran RN Amended: Links added.
[2018-06-21] MEDS ORDERED: HYDROCORTISONE ACET 25 MG RECTAL SUPP PR ONE (12:00)
[2018-06-21 12:29] LABS: Hematocrit 33.1 % (36.0-46.0); Hemoglobin 10.3 g/dL (12.2-16.2)
[2018-06-21 13:00] VITALS: BP 158/72
--- NOTE | 2018-06-21 15:20 | NUR ---
Hemodialysis Dialysis nurse at bedside
[2018-06-21 17:00] VITALS: BP 142/67
--- NOTE | 2018-06-21 19:01 | NUR ---
Hemodialysis Hemodialysis complete; 1 L removed.
--- NOTE | 2018-06-21 19:35 | NUR ---
Opening Shift Note Assumed care of patient, awake and alert x 4. No S/S of distress/SOB. Bed is in lowest position and locked. Call light within reach. Board updated. Tele box number matches monitor and leads are in correct placement. Specialty mattress on bed and working. No blood found on bedding or around anus. Instructed on POC and to call for assist PRN, will continue to monitor for changes Q1hr and PRN.
[2018-06-21] MEDS ORDERED: EPOETIN ALFA 10,000 UNIT/1 ML VIAL SC ONE (21:00)
[2018-06-21] MEDS: HYDROCORTISONE ACET 25 MG RECTAL SUPP PR SCH (21:50)
[2018-06-21] MEDS: ATORVASTATIN 20 MG TAB PO SCH (21:50)
[2018-06-21 22:55] VITALS: BP 151/69
[2018-06-22] MEDS: ACETAMINOPHEN 500 MG TAB PO PRN (00:57)
[2018-06-22] MEDS: METOCLOPRAMIDE HCL 5MG/ml INJ 2ml VIAL IV PRN (04:44)
[2018-06-22 05:35] VITALS: BP 154/69
[2018-06-22 06:09] LABS: Basophils # (auto) 0 uL; Basophils % (auto) 0.4 % (0.0-2.0); Eosinophils # (auto) 0.5 uL; Eosinophils % (auto) 6.4 % (0.0-7.0); Hemoglobin 8.9 g/dL (12.2-16.2); Lymphocytes % (auto) 11.5 % (10.0-50.0); Mean Corpuscular Hemoglobin 28.6 pg (28.0-32.0); Mean Corpuscular Hgb Conc. 32.9 g/dL (32.0-36.0); Mean Corpuscular Volume 87.1 fL (80.0-100.0); Monocytes # (auto) 0.5 uL; Monocytes % (auto) 5.7 % (0.0-12.0); Neutrophils # (auto) 6.4 uL; Platelet Count (auto) 269 10^3/uL (140-450); Red Cell Distribution Width 15.8 % (11.8-14.3); White Blood Cell 8.4 10^3/uL (4.4-10.8)
[2018-06-22] MEDS: InsuLIN REG 1unit/0.01ml Soln (100units/ml) SC SCH ×4 (06:09→21:41)
[2018-06-22] MEDS: metroNIDAZOLE 500MG/100ML 100 ML IV SCH ×3 (06:09→21:36)
[2018-06-22] MEDS: ACCU-CHEK COMFORT CURVE STRIP VI SCH ×4 (06:10→21:41)
--- NOTE | 2018-06-22 06:20 | NUR ---
Patient refused Insulin per sliding scale for a blood sugar of 135 mg/dl because she says she 'drops low" quite easily. Medication held.
[2018-06-22 06:30] LABS: BUN/Creatinine Ratio 10.1; Calcium 7.9 mg/dL (8.5-10.1); Potassium 4.2 mmol/L (3.5-5.1)
--- NOTE | 2018-06-22 07:20 | NUR ---
Opening Shift Note Assumed care of patient, awake and alert. No S/S of distress/SOB or pain. Instructed on POC and to call for assist PRN, will continue to monitor for changes Q1hr and PRN.
[2018-06-22 08:00] VITALS: BP 157/69
[2018-06-22 08:53] VITALS: BP 157/69
[2018-06-22] MEDS: SEVELAMER 800 MG TAB PO SCH ×3 (08:54→17:58)
[2018-06-22] MEDS: METOPROLOL TARTRATE 50 MG TAB PO SCH ×2 (09:03→21:37)
[2018-06-22] MEDS: PANTOPRAZOLE 40 MG TAB PO SCH (09:03)
[2018-06-22] MEDS: HYDROCORTISONE ACET 25 MG RECTAL SUPP PR SCH (09:04)
[2018-06-22] MEDS: DOCUSATE SOD 100 MG CAP PO SCH ×2 (09:04→21:36)
[2018-06-22 13:00] VITALS: BP 141/67
[2018-06-22] MEDS ORDERED: HYDROCORTISONE 2.5% TOPICAL CREAM 30GM TUBE TOP ONE (13:15)
--- NOTE | 2018-06-22 14:02 | NUR ---
assessment Patient is a 78 year old female who is alert and oriented. Prior to admission patient lived home with family and functioned with assistance. Per patient she will return home to her prior living arrangements post discharge and family will transport her home. Patient informed me her PCP is Dr Layne. Patient informed me she has a fww, cane, shower chair, and 02 for home use. Patient informed me she needs help bathing and is weak. Patient will benefit from home health PT and aid.I informed patient she has a right to speak to a psychosocial rehabilitation counselor regarding all care. I informed patient she has a right to participate in any and all discharge planning. Patient is aware of visiting hours on the hospital floor. I informed patient she has a right to privacy. Patient has a POA and advanced directive. Patient verbalized understanding and agreed to discharge plan. Addendum: 06/22/18 at 1435 by Alba MICHAUD Amended: Links added.
[2018-06-22] MEDS: HYDROcodone-ACET 5/325MG TAB PO PRN (14:54)
--- NOTE | 2018-06-22 15:08 | NUR ---
re-assessment Per ss consult patient is high risk because she lives alone and is a dialysis patient. Patient does live alone. Per patient she only needs help with bathing. I have requested home health for PT and aid. Patient feels safe returning home on discharge. Addendum: 06/22/18 at 1510 by Alba See Amended: Links added.
[2018-06-22 16:43] VITALS: BP 147/67
[2018-06-22] MEDS: ONDANSETRON HCL 4 MG/2 ML VIAL IV PRN (17:59)
--- NOTE | 2018-06-22 19:15 | NUR ---
OPENING SHIFT NOTE ASSUMED CARE OF PATIENT FROM DAY SHIFT EARLE SHEFFIELD. PATIENT RESTING IN BED WITH EVEN AND UNLABORED RESPIRATIONS. SHE IS A/O X4 WITH NO S/S OF DISTRESS/SOB. PATIENT DENIES ANY PAIN AT THIS TIME AND STATES THAT SHE ONLY GETS NAUSEATED WHEN TURNED SIDE SIDE BECAUSE IT MAKES HER DIZZY. BED IS IN LOWEST POSITION, LOCKED, CALL LIGHT IN REACH. INSTRUCTED ON POC AND TO CALL FOR ASSIST PRN. WILL CONTINUE TO MONITOR.
[2018-06-22] MEDS: ATORVASTATIN 20 MG TAB PO SCH (21:36)
[2018-06-22] MEDS: HYDROCORTISONE 2.5% TOPICAL CREAM 30GM TUBE TOP SCH (21:37)
[2018-06-22 21:59] VITALS: BP 143/56
[2018-06-23] VITALS (7 sets, daily range): BP systolic 123–164; BP diastolic 56–93
[2018-06-23] MEDS: METOCLOPRAMIDE HCL 5MG/ml INJ 2ml VIAL IV PRN (03:49)
--- NOTE | 2018-06-23 04:30 | NUR ---
IV insertion IV access obtained, via clean sterile technique by inserting 22 gauge catheter at right forearm after 2 attempt(s). IV secured properly. No trauma to site. Patient tolerated well.
[2018-06-23] MEDS: metroNIDAZOLE 500MG/100ML 100 ML IV SCH ×3 (05:42→22:07)
[2018-06-23] MEDS: ACCU-CHEK COMFORT CURVE STRIP VI SCH ×4 (06:07→22:22)
[2018-06-23] MEDS: InsuLIN REG 1unit/0.01ml Soln (100units/ml) SC SCH ×4 (06:08→22:22)
--- NOTE | 2018-06-23 06:22 | NUR ---
AM DIALYSIS CONFIRMATION AARTI CALLED FROM [facility]. SHE STATED SHE WILL BE IN AROUND [phone]
--- NOTE | 2018-06-23 07:15 | NUR ---
CLOSING NOTE CARE TRANSFERRED TO DAY SHIFT EARLE SIMPSON.
--- NOTE | 2018-06-23 07:15 | NUR ---
PATIENT SLEEPING EASILY AROUSABLE. DENIES PAIN AT THIS MOMENT. EFFORTLES BREATHING ON 2LNC. IV PRESENT TO RFA#22 BED IN LOWEST POSITION, CALL LIGHT WITHIN REACH.
[2018-06-23] MEDS ORDERED: SODIUM CHL 0.9% 1000 ML BAG XX ONE (08:00)
[2018-06-23] MEDS: SEVELAMER 800 MG TAB PO SCH ×3 (08:00→17:05)
--- NOTE | 2018-06-23 08:26 | NUR ---
RENAGEL NOT ADMINISTERED AT THIS TIME DUE TO PATIENT IN HEMODIALYSIS AT THIS MOMENT.
[2018-06-23] MEDS: METOPROLOL TARTRATE 50 MG TAB PO SCH ×2 (10:00→22:07)
[2018-06-23] MEDS: PANTOPRAZOLE 40 MG TAB PO SCH (10:00)
[2018-06-23] MEDS: DOCUSATE SOD 100 MG CAP PO SCH ×2 (10:00→22:07)
--- NOTE | 2018-06-23 10:30 | NUR ---
ACTIVE BLEEDING WITH THROMBUS NOTED FROM RECTUM, DR. JAMES MADE AWARE OF FINDING, MD PRESENT AT BEDSIDE, PT NPO, CONSULT MADE TO GI. PROVIDED HYGIENE CARE TO PATIENT. PT IN HEMODIALYSIS AT MOMENT. WOUND CARE AND DRESSING CHANGE COMPLETED. CALL LIGHT WITHIN REACH. ORACLE ANALYST AT BEDSIDE. WILL CONTINUE TO MONITOR.
--- NOTE | 2018-06-23 11:00 | NUR ---
BLOOD BANK CALLED FOR BLOOD TRANSFUSION. ATTEMPTING TO OBTAIN BLOOD PRIOR TO HEMODIALYSIS COMPLETION.
--- NOTE | 2018-06-23 11:55 | NUR ---
BLOOD TRANSFUSION ADMINISTERED BY CLAY PROCESSING FACTORY WORKER MARIE. BLOOD TRANSFUSED WHILE IN HEMODIALYSIS. 1147: INITIAL V/S: 98.1; 80; 18; 99% 2LNC; 116/59 1152: ENDING V/S: 98.0; 81; 19; 98% 2LNC; 115/60 PATIENT AWAKE ALERT TOLERATED WELL. RESPONSIVE TO COMMANDS.
[2018-06-23] MEDS: HYDROCORTISONE 2.5% TOPICAL CREAM 30GM TUBE TOP SCH ×2 (12:26→22:22)
[2018-06-23 12:29] LABS: Hematocrit 28.9 % (36.0-46.0); Hemoglobin 9.6 g/dL (12.2-16.2)
[2018-06-23] MEDS: HYDROcodone-ACET 5/325MG TAB PO PRN (13:53)
--- NOTE | 2018-06-23 14:14 | NUR ---
MIDLINE INSERTION IN PROGRESS. PATIENT SCHEDULED FOR CTA. PICC LINE RN AT BEDSIDE. WILL CONTINUE TO MONITOR.
[2018-06-23] MEDS ORDERED: IOHEXOL 350 MG/ML 100ML IJ ONE (14:26)
--- NOTE | 2018-06-23 14:30 | NUR ---
Nutrition consult/assessment Notes please see attached link for complete assessment Est. Needs ABW [id number] kcal (25-27 kcal/kgBW), 84-98 gms pro (1.2-1.4 gm/kgBW r/t HD, WOUNDS). Will continue to monitor pertinent labs and reassess nutrient need prn. Addendum: 06/23/18 at [address] Amended: Links added.
--- NOTE | 2018-06-23 14:36 | NUR ---
MIDLINE CATHETER INSERTED TO RIGHT UPPER ARM. PATIENT TAKEN TO RADIOLOGY FOR CTA. AT MOMENT. NO DISTRESS AT THIS TIME.
--- NOTE | 2018-06-23 14:36 | NUR ---
Midline Placement Patient educated on need for midline placement. All risks and benefits explained and all questions and concerns addresses prior to procedure. 18g/10cm midline inserted via Right Basilic vein using Ultrasound. Sterile technique utilized. Blood return obtained from single lumen only initially upon insertion of midline, flushed easily with NS using proper technique but no blood return afterwads. Appears that vessel has scar tissue, RN Sasha notified as pt needs STAT interventional radiology procedure. Midline secured with saline lock; biodisc and occlusive dressing applied. Primary RN notified. Midline lot #[id number].
--- NOTE | 2018-06-23 15:24 | NUR ---
DR. DUPREE ORDERED CONSENT TO COLONOSCOPY AND TAP WATER ENEMA. ORDERS INPUT PER MD. ENEMA ADMINISTERED, PATIENT TOLERATED WELL. PROVIDED HYGIENE CARE.
[2018-06-23] MEDS ORDERED: SODIUM CHLORIDE LOCK 10 ML ONE (15:58)
[2018-06-23] MEDS ORDERED: diphenhdrAMINE HCL 50 MG/1 ML VL ONE (15:59)
--- NOTE | 2018-06-23 16:10 | NUR ---
PATIENT TAKEN DOWN TO PRE-OP FOR COLONOSCOPY. REPORT GIVEN TO EARLE RODARTE
[2018-06-23] MEDS: fentaNYL CITRATE 100 MCG/2 ML VL ONE ×2 (16:31→16:58)
[2018-06-23] MEDS: MIDAZOLAM HCL 5 MG/ML-1ML VIAL ONE ×2 (16:31→16:58)
[2018-06-23] MEDS ORDERED: EPINEPHrine HCL 1 MG/10 ML SYRG ONE (16:57)
[2018-06-23] MEDS ORDERED: LABETALOL HCL 5 MG/ML ML 20ML VIAL IV ONE (17:20)
--- NOTE | 2018-06-23 18:01 | NUR ---
PATIENT BACK IN UNIT. PATIENT AWAKE, ALERT, ORIENTED x4. DENIES DISCOMFORT AT MOMENT. PROVIDED HYGIENE CARE. PASSIVE BLEEDING TO RECTUM. BED IN LOWEST POSITION, PATIENT ON LOW AIR LOSS MATTRESS. CALL LIGHT WITHIN REACH. TOLERATING CLEAR LIQUID DIET WELL.
--- NOTE | 2018-06-23 19:10 | NUR ---
PATIENT IN BED. EFFORTLESS BREATHING ON 2LNC AT MOMENT. SLEEPING EASILY TO [place]. QUESTIONS AND CONCERNS ADDRESSED WITH ONCOMING SHIFT STAFF. ONE UNIT OF BLOOD TRANSFUSION REMAINING TO BE INFUSED. BED IN LOWEST POSITION, AIR MATTRESS ON, BED WHEELS LOCKED, CALL LIGHT WITHIN REACH.
--- NOTE | 2018-06-23 19:30 | NUR ---
Opening Shift Note Assumed care of patient, awake and alert. No S/S of distress/SOB or pain. Noted fistula on left upper arm, bruit present. Instructed on POC and to call for assist PRN, patient verbalized understanding, call light within reach, will continue to monitor for changes Q1hr and PRN.
[2018-06-23] MEDS ORDERED: EPOETIN ALFA 10,000 UNIT/1 ML VIAL SC ONE (21:00)
--- NOTE | 2018-06-23 21:05 | NUR ---
Started 1 unit PRBC after verified by primary RN and 2nd RN Daylin. V/S taken prior to BT, will monitor for BT reaction
[2018-06-23] MEDS: ATORVASTATIN 20 MG TAB PO SCH (22:07)
[2018-06-24] VITALS (7 sets, daily range): BP systolic 146–171; BP diastolic 64–85
--- NOTE | 2018-06-24 00:10 | NUR ---
Blood transfusion done, no BT reaction noted, patient tolerated well, will continue to monitor
[2018-06-24 01:31] LABS: Hemoglobin 8.7 g/dL (12.2-16.2)
[2018-06-24] MEDS: InsuLIN REG 1unit/0.01ml Soln (100units/ml) SC SCH ×4 (06:06→22:28)
[2018-06-24] MEDS: ACCU-CHEK COMFORT CURVE STRIP VI SCH ×4 (06:06→22:28)
[2018-06-24] MEDS: metroNIDAZOLE 500MG/100ML 100 ML IV SCH ×3 (06:06→22:27)
--- NOTE | 2018-06-24 06:14 | NUR ---
Pericare done, changed pads, cleansed and applied thera honey to sacral ulcer and covered with optifoam, instructed to turn to her side, patient tolerated well
--- NOTE | 2018-06-24 07:10 | NUR ---
PATIENT IN BED RESTING, AWAKE, ALERT, ORIENTED x4. DENIES ANY DISCOMFORT AT MOMENT. ABDOMEN SOFT TO PALPATION, NO BLEEDING FROM RECTUM. OPTIFOAM IN PLACE C/D/I. BED IN LOWEST POSITION, BED WHEELS LOCKED, PATIENT AIR LOSS MATTRESS. CALL LIGHT WITHIN REACH. WILL CONTINUE TO MONITOR.
[2018-06-24 08:13] LABS: Hematocrit 27.2 % (36.0-46.0); Hemoglobin 9.1 g/dL (12.2-16.2)
[2018-06-24] MEDS: SEVELAMER 800 MG TAB PO SCH ×3 (08:39→17:42)
--- NOTE | 2018-06-24 10:00 | NUR ---
SACRAL WOUND CARE COMPLETED. CLEANSED WOUND, APPLIED THERAHONEY TO AREA. OPTIFOAM BARRIER IN USE. PT TOLERATED PROCEDURE WELL. CALL LIGHT WITHIN REACH.
--- NOTE | 2018-06-24 10:24 | NUR ---
PT Patient refused to be OOB during morning PT visit but requested to comeback after lunch. Addendum: 06/24/18 at 1025 by OBI SINGH PTT Amended: Links added.
--- NOTE | 2018-06-24 10:27 | NUR ---
PER DR. PINEDA. HARRISON CATHETER INSERTION ORDER TO BE DISREGARDED DUE TO PATIENT ON HD.
[2018-06-24] MEDS: DOCUSATE SOD 100 MG CAP PO SCH ×2 (10:28→22:27)
[2018-06-24] MEDS: PANTOPRAZOLE 40 MG TAB PO SCH (10:29)
[2018-06-24] MEDS: METOPROLOL TARTRATE 50 MG TAB PO SCH ×2 (10:29→22:28)
[2018-06-24] MEDS: HYDROCORTISONE 2.5% TOPICAL CREAM 30GM TUBE TOP SCH ×2 (10:29→21:27)
[2018-06-24] MEDS: HYDROcodone-ACET 5/325MG TAB PO PRN (10:35)
--- NOTE | 2018-06-24 11:04 | NUR ---
DR. DUPREE IN TO EVALUATE PATIENT. PATIENT IN AGREEMENT WITH PLAN OF CARE.
--- NOTE | 2018-06-24 14:42 | NUR ---
URINE SPECIMEN COLLECTED, SENT TO LAB.
[2018-06-24 15:48] LABS: Urine Bacteria FEW /hpf (None Seen); Urine Blood 3+ /uL (Negative); Urine Budding Yeast MODERATE /hpf (None Seen); Urine Specific Gravity 1.033 (1.001-1.035); Urine WBC 16 /hpf (0 - 5)
--- NOTE | 2018-06-24 17:55 | NUR ---
PATIENT IN LOW FOWLERS, TOLERATED DIET WELL, DENIES ANY DISCOMFORT AT MOMENT. NO BLEEDING NOTED FROM RECTUM; LAST BM ON 06/23/18 ABDOMEN SOFT TO PALPATION, ACTIVE BOWEL SOUNDS TO ALL QUADRANTS. EFFORTLESS BREATHING ON 2LPM NASAL CANULA. IV CATHETER TO RIGHT WRIST #22 DC'D DUE TO INABILITY TO FLUSH. IV PRESENT TO WALDO MIDLINE AND RIGHT LOWER FOREARM #22 FLUSHING WELL, PATENT. BED IN LOWEST POSITION, BED WHEELS LOCKED, CALL LIGHT WITHIN REACH.
--- NOTE | 2018-06-24 19:30 | NUR ---
RECEIVED PATIENT FROM DAY SHIFT RN. PATIENT RESTING IN BED. FAMILY AT BEDSIDE. NO S/S OF DISTRESS NOTED. DENIED PAIN FOR NOW. NO RECTAL BLEED NOTED. DRESSING ON SACRUM C/D/I. POC INSTRUCTED AND ENCOURAGED PATIENT TO CALL FOR PARKING LOT MANAGER IF NEEDED. SPECIAL MATTRESS BED IN LOWEST POSITION WITH SIDE RAILS UP X 2. CALL GOMES WITHIN REACH. ALARM ON. CONTINUE TO MONITOR FOR CHANGES Q1H AND PRN.
--- NOTE | 2018-06-24 21:26 | NUR ---
CREAM APPLIED TO RECTAL AREA ORDERED. PATIENT TOLERATED WELL. NO BLEED NOTED. NO S/S OF DISTRESS NOTED. CONTINUE TO MONITOR.
--- NOTE | 2018-06-24 21:44 | NUR ---
HOSPITALIST CALLED FOR OTHER PATIENT, PER PATIENT REQUESTED, UPDATED PATIENT'S CONDITION AND REQUEST. ORDER RECEIVED, RESTORIL 15MG ONCE. WILL CARRY IT OUT. CONTINUE TO MONITOR.
[2018-06-24] MEDS ORDERED: TEMAZEPAM 15 MG CAP PO ONE (22:00)
[2018-06-24] MEDS: ATORVASTATIN 20 MG TAB PO SCH (22:27)
--- NOTE | 2018-06-24 22:28 | NUR ---
ACCU-CHECK, BS 134. INSULIN GIVEN ORDERED. CONTINUE TO MONITOR.
[2018-06-24 22:53] LABS: Sodium Urine 24 mmol/L (40-220)
[2018-06-24 23:24] LABS: Creatinine, Urine 124 mg/dL (30.0-125.0); Protein, Urine 189 mg/dL (0.0-11.9)
--- NOTE | 2018-06-25 02:30 | NUR ---
PATIENT SLEEPING. NO S/S OF DISTRESS AND PAIN NOTED. CONTINUE CARE.
[2018-06-25 04:53] VITALS: BP 165/76
[2018-06-25 05:59] LABS: Albumin 2.1 g/dL (3.4-5.0); Calcium 7.4 mg/dL (8.5-10.1)
[2018-06-25 06:02] LABS: BUN/Creatinine Ratio 6.6
[2018-06-25 06:05] LABS: Bilirubin, Total 0.4 mg/dL (0.2-1.0); Total Protein 4.9 g/dL (6.4-8.2)
[2018-06-25] MEDS: ACCU-CHEK COMFORT CURVE STRIP VI SCH ×4 (06:12→21:42)
[2018-06-25] MEDS: InsuLIN REG 1unit/0.01ml Soln (100units/ml) SC SCH ×4 (06:12→21:42)
[2018-06-25] MEDS: metroNIDAZOLE 500MG/100ML 100 ML IV SCH ×3 (06:12→21:41)
--- NOTE | 2018-06-25 06:13 | NUR ---
ACCU-CHECK, BS 102. NO COVERAGE. CONTINUE TO MONITOR.
--- NOTE | 2018-06-25 07:35 | NUR ---
RECEIVED REPORT AND ASSUME CARE OF PT. PT RESTING IN BED. NO S/S ACUTE DISTRESS NOTED. BED AT LOWEST POSITION. CALL LIGHT AND BELONGINGS WITHIN REACH. WILL CONT TO MONITOR.
[2018-06-25 08:22] VITALS: BP 157/60
[2018-06-25] MEDS: SEVELAMER 800 MG TAB PO SCH ×3 (08:38→17:44)
[2018-06-25] MEDS: PANTOPRAZOLE 40 MG TAB PO SCH (08:38)
[2018-06-25] MEDS: DOCUSATE SOD 100 MG CAP PO SCH ×2 (08:39→21:41)
[2018-06-25] MEDS: METOPROLOL TARTRATE 50 MG TAB PO SCH ×2 (08:39→21:42)
[2018-06-25] MEDS: HYDROCORTISONE 2.5% TOPICAL CREAM 30GM TUBE TOP SCH ×2 (08:40→21:42)
[2018-06-25] MEDS: HYDROcodone-ACET 5/325MG TAB PO PRN ×2 (11:19→17:17)
[2018-06-25] MEDS ORDERED: amLODIPine BESYLATE 5 MG TAB PO SCH (11:30)
[2018-06-25] MEDS: SODIUM CHLORIDE 0.9% 1,000 ML IV SCH (12:10)
[2018-06-25 13:19] VITALS: BP 155/77
[2018-06-25 17:04] VITALS: BP 160/69
--- NOTE | 2018-06-25 19:20 | NUR ---
PT RESTING IN BED. NO S/S ACUTE DISTRESS NOTED. ENDORSED CARE TO NIGHT NURSE.
[2018-06-25] MEDS: ATORVASTATIN 20 MG TAB PO SCH (21:41)
--- NOTE | 2018-06-25 21:43 | NUR ---
ACCU-CHECK, BS 174. INSULIN GIVEN ORDERED. CREAM APPLIED TO RECTAL AREA ORDERED. PATIENT TOLERATED WELL. NO BLEED NOTED. NO S/S OF DISTRESS NOTED. CONTINUE TO MONITOR.
[2018-06-25 21:54] VITALS: BP 151/67
[2018-06-26] MEDS: SODIUM CHLORIDE 0.9% 1,000 ML IV SCH (00:01)
[2018-06-26] MEDS: HYDROcodone-ACET 5/325MG TAB PO PRN ×2 (00:04→15:40)
--- NOTE | 2018-06-26 00:04 | NUR ---
PATIENT C/O PAIN @ 09/30. MEDICATED PATIENT ORDERED. CONTINUE TO MONITOR.
--- NOTE | 2018-06-26 02:52 | NUR ---
PATIENT SLEEPING. NO S/S OF DISTRESS NOTED. CONTINUE CARE.
[2018-06-26 05:07] VITALS: BP 159/66
[2018-06-26] MEDS: metroNIDAZOLE 500MG/100ML 100 ML IV SCH (06:20)
[2018-06-26] MEDS: ACCU-CHEK COMFORT CURVE STRIP VI SCH ×4 (06:21→22:35)
[2018-06-26] MEDS: InsuLIN REG 1unit/0.01ml Soln (100units/ml) SC SCH ×4 (06:21→22:35)
--- NOTE | 2018-06-26 06:21 | NUR ---
ACCU-CHECK, BS 128. NO COVERAGE. CONTINUE TO MONITOR.
[2018-06-26] MEDS ORDERED: SODIUM CHL 0.9% 1000 ML BAG XX ONE (07:00)
--- NOTE | 2018-06-26 07:15 | NUR ---
Opening Shift Note Received report and assumed care of patient, awake and alert.eating breakfast, No S/S of distress/SOB or pain. Instructed on POC,nursing routine and hemodialysis schedule ,call light within reach patient reminded instructed to call for assistance,patient verbalized understanding. will continue to monitor for changes Q1hr and PRN.
[2018-06-26] MEDS: SEVELAMER 800 MG TAB PO SCH ×3 (08:10→17:41)
[2018-06-26 08:44] VITALS: BP 121/64
--- NOTE | 2018-06-26 09:30 | NUR ---
PHYSICAL THERAPY AT BEDSIDE,ASSISTING PATIENT TO GET OOB AND TO AMBULATE,PATIENT REFUSED C/O DIZZINESS WHEN GETTING OOB.
[2018-06-26] MEDS: PANTOPRAZOLE 40 MG TAB PO SCH (10:00)
[2018-06-26] MEDS: DOCUSATE SOD 100 MG CAP PO SCH ×2 (10:00→22:34)
--- NOTE | 2018-06-26 10:00 | NUR ---
A.M. MEDICATIONS HOLD PATIENT WAITING FOR HEMODIALYSIS TREATMENT
--- NOTE | 2018-06-26 10:20 | NUR ---
MD VISIT ERIKA RUTHERFORD HERE TO SEE AND EXAMINED PATIENT RECEIVED ORDERS
[2018-06-26] MEDS ORDERED: MORPHINE SULF INJ 2 MG/ML SYRINGE 1ML IV PRN ×2 (10:30→10:45)
[2018-06-26] MEDS: HYDROCORTISONE 2.5% TOPICAL CREAM 30GM TUBE TOP SCH ×2 (12:28→22:35)
[2018-06-26 13:00] VITALS: BP 157/80
--- NOTE | 2018-06-26 13:05 | NUR ---
AWAITING FOR HEMODIALYSIS
--- NOTE | 2018-06-26 13:55 | NUR ---
KOSHER DIETARY SERVICE SUPERVISOR AT BEDSIDE,HEMODIALYSIS STARTED
--- NOTE | 2018-06-26 16:42 | NUR ---
re-assessment Per consult dc planning, SNF. Patient prefers [facility]. MD order sent to [facility]. Per Arturo [facility] has accepted to accepting MD Dr. Morales. Arturo has been informed of patients dialysis days and times. Arturo to set up transportation once discharged. Patient agrees with discharge plan to SNF [facility]. Addendum: 06/26/18 at 1645 by Alba See Amended: Links added.
[2018-06-26 17:00] VITALS: BP 188/88
--- NOTE | 2018-06-26 17:15 | NUR ---
HEMODIALYSIS ENDED PER COMBUSTION ANALYST REPORT WAS ABLE TO REMOVED 2 LITERS ONLY,SBP OF 200/80 AND UNABLE TO LOWER IT DOWN,
--- NOTE | 2018-06-26 17:21 | NUR ---
DONNA NEELY NURSE PRACTITIONER/HOSPITALIST TREASURY CONSULTANT,INFORMED OF BP OF 200/80 AFTER HEMODIALYSIS,RECEIVED ORDER FOR HYDRALAZINE PRN AND NORVASC,SEE ORDER WRITTEN.
[2018-06-26] MEDS ORDERED: amLODIPine BESYLATE 5 MG TAB PO ONE (17:30)
[2018-06-26] MEDS: hydrALAZINE HCL 20 MG/ML VL IV PRN (17:41)
--- NOTE | 2018-06-26 18:20 | NUR ---
BP rechecked after dose of Hydralazine,BP 157/87
--- NOTE | 2018-06-26 19:12 | NUR ---
Report given to incoming noc shift RN, no distress no discomfort
--- NOTE | 2018-06-26 19:20 | NUR ---
RECEIVED PATIENT FROM DAY SHIFT RN. PATIENT RESTING IN BED. NO S/S OF DISTRESS NOTED. C/O PAIN ON RIGHT HIP @ 4/10 AFTER MEDICATION GIVEN EARLIER. INSTRUCTED PATIENT THE SCHEDULE OF PAIN MANAGEMENT. WILL COME FOR PAIN MEDICATION WHEN THE TIME IS DUE AND PER PATIENT REQUESTED. POC INSTRUCTED AND ENCOURAGED PATIENT TO CALL FOR PEDIATRIC SURGEON IF NEEDED. SPECIAL MATTRESS BED IN LOWEST POSITION WITH SIDE RAILS UP X 2. CALL GOMES WITHIN REACH. ALARM ON. CONTINUE TO MONITOR FOR CHANGES Q1H AND PRN.
[2018-06-26] MEDS ORDERED: EPOETIN ALFA 10,000 UNIT/1 ML VIAL SC ONE (21:00)
[2018-06-26 22:00] VITALS: BP 183/67
[2018-06-26] MEDS: ATORVASTATIN 20 MG TAB PO SCH (22:34)
[2018-06-26] MEDS: METOPROLOL TARTRATE 50 MG TAB PO SCH (22:35)
--- NOTE | 2018-06-26 22:36 | NUR ---
ASSISTED PATIENT TO BEDPAN. PATIENT TOLERATED WELL. DRESSING CHANGED ON BUTTOCKS. CONTINUE TO MONITOR.
--- NOTE | 2018-06-26 22:36 | NUR ---
ACCU-CHECK, BS 125. NO COVERAGE. CONTINUE TO MONITOR.
[2018-06-27] VITALS (13 sets, daily range): BP systolic 144–181; BP diastolic 62–81
--- NOTE | 2018-06-27 02:46 | NUR ---
PATIENT SLEEPING. NO S/S OF DISTRESS AND PAIN NOTED. CONTINUE CARE.
[2018-06-27 05:59] LABS: Basophils # (auto) 0.1 uL; Basophils % (auto) 0.9 % (0.0-2.0); Eosinophils # (auto) 1.2 uL; Eosinophils % (auto) 13.4 % (0.0-7.0); Hematocrit 22.6 % (36.0-46.0); Hemoglobin 7.6 g/dL (12.2-16.2); Lymphocytes # (auto) 1.1 uL; Lymphocytes % (auto) 11.9 % (10.0-50.0); Mean Corpuscular Hemoglobin 30.2 pg (28.0-32.0); Mean Corpuscular Hgb Conc. 33.8 g/dL (32.0-36.0); Mean Corpuscular Volume 89.3 fL (80.0-100.0); Monocytes # (auto) 0.7 uL; Monocytes % (auto) 7.5 % (0.0-12.0); Neutrophils # (auto) 5.9 uL; Neutrophils % (auto) 66.3 % (37.0-80.0); Platelet Count (auto) 228 10^3/uL (140-450); Red Blood Cells 2.53 10^6/uL (4.0-5.20); Red Cell Distribution Width 16.8 % (11.8-14.3); White Blood Cell 8.9 10^3/uL (4.4-10.8)
[2018-06-27] MEDS: ACCU-CHEK COMFORT CURVE STRIP VI SCH ×4 (06:27→22:32)
[2018-06-27] MEDS: InsuLIN REG 1unit/0.01ml Soln (100units/ml) SC SCH ×4 (06:27→22:32)
--- NOTE | 2018-06-27 06:27 | NUR ---
ACCU-CHECK, BS 129. NO COVERAGE. CONTINUE TO MONITOR.
[2018-06-27] MEDS: hydrALAZINE HCL 20 MG/ML VL IV PRN ×2 (07:38→16:30)
[2018-06-27] MEDS: SEVELAMER 800 MG TAB PO SCH ×3 (08:00→17:31)
--- NOTE | 2018-06-27 08:00 | NUR ---
Opening Shift Note Assumed care of patient, awake and alert. No S/S of distress/SOB or pain. S/P colonoscopy , no s/s of bleeding. Instructed on POC and to call for assist PRN, will continue to monitor for changes Q1hr and PRN.
[2018-06-27] MEDS: PANTOPRAZOLE 40 MG TAB PO SCH (09:25)
[2018-06-27] MEDS: METOPROLOL TARTRATE 50 MG TAB PO SCH ×2 (09:25→22:32)
[2018-06-27] MEDS: amLODIPine BESYLATE 5 MG TAB PO SCH (09:25)
[2018-06-27] MEDS: DOCUSATE SOD 100 MG CAP PO SCH ×2 (09:25→22:31)
[2018-06-27] MEDS: HYDROCORTISONE 2.5% TOPICAL CREAM 30GM TUBE TOP SCH ×2 (09:26→22:00)
[2018-06-27 10:46] LABS: Hemoglobin 7.8 g/dL (12.2-16.2)
[2018-06-27 10:48] LABS: Hematocrit 23.1 % (36.0-46.0)
--- NOTE | 2018-06-27 14:10 | NUR ---
Nutrition Follow-up Notes Wt.: 85.5 kg as of yesterday. Pt's on oxygen via nasal cannula, asleep, no immediate family member at bedside during rounds this morning. Pt's sigmoidoscopy (06/23/18), had dialysis yesterday, no signs of distress noted earlier, currently on Consistent Carb diet with fair PO intake aeb 70% ave. consumed meals (x7) in last 3 days. Est. Needs ABW [id number] kcal (25-27 kcal/kgBW), 84-98 gms pro (1.2-1.4 gm/kgBW r/t HD, WOUNDS). Will continue to monitor pertinent labs and reassess nutrient need prn. Labs: POC Gluc 222 H; 06/25/18 BUN 20 H, Cr 3.0 H, Ca 7.4 L,AST 12 L, ALT 9 L, Tpro 4.9 L, Alb 2.1 L Skin: Duy scale 19, low risk, pt's left right buttocks pressure ulcers per can closing machine operator. Pls refer to quad stayer's notes 06/24/18 for further details re: tx plans. GI: Pt had 1 BM 06/24/18 per can closing machine operator. PES: Increased nutrient needs r/t current/chronic medical condition aeb ESRD on HD, severe hypoalbuminemia, wound healing, <75% consumed meals. Altered nutrition related lab values r/t current/chronic medical condition aeb elev RFT hypocalcemia, mod hypoalb, hyperglycemia Will continue to monitor PO intake, skin status, pertinent labs and weight trend. F/u in 3 to 5 days. Rec.: 1.) Consider Soft Consistent Standard Carb: 60 gms/meal, Renal Standard, Cardiac diet. 2.) If Albumin level continues trending down, consider Prostat 1 pkt BID. 3.) Consider daily Nephrovite and Asc acid 500 mgs BID. 4.) Continue close supervision and feeding assistance prn during meals. 5.) Refer pt to CDE/RD for further nutrition education and weight monitoring upon discharge. 6.) Continue current plan of care.
--- NOTE | 2018-06-27 14:50 | NUR ---
Blood initiated Order received and verified with additional nurse by read back. Baseline vitals obtained and charted. Patient no complaints of pain. Initiated at rate 60 ml for 15 mins then increased as tolerated. Will continue to monitor patient for change or indications of reaction. Additional charting as follow in [facility] transfusion history.
[2018-06-27] MEDS: Pro-Stat SF 30ml Vanilla PO SCH (18:51)
[2018-06-27] MEDS: B-COMPLEX W/ C & FOLIC ACID(NEPHROVITE TAB) PO SCH (18:52)
--- NOTE | 2018-06-27 19:06 | NUR ---
Opening Shift Note Assumed care of patient, awake and alert x4. No S/S of distress/SOB or pain. Bed is in lowest position, bed alarm is on, side rails up x2, call light is within reach. Instructed on POC and to call for assist PRN, will continue to monitor for changes Q1hr and PRN.
[2018-06-27] MEDS: ASCORBIC ACID 500 MG TAB PO SCH (22:31)
[2018-06-27] MEDS: ATORVASTATIN 20 MG TAB PO SCH (22:31)
[2018-06-27] MEDS: ACETAMINOPHEN 500 MG TAB PO PRN (22:35)
[2018-06-28] MEDS: hydrALAZINE HCL 20 MG/ML VL IV PRN (04:42)
--- NOTE | 2018-06-28 04:45 | NUR ---
Morning blood pressure was 164/70. Will give hydralazine 10 mg as ordered and reassess.
[2018-06-28 04:51] VITALS: BP 164/70
[2018-06-28 05:31] LABS: Hematocrit 25.8 % (36.0-46.0); Hemoglobin 8.6 g/dL (12.2-16.2)
[2018-06-28 05:41] LABS: Albumin 2.2 g/dL (3.4-5.0); BUN/Creatinine Ratio 7.1; Calcium 7.6 mg/dL (8.5-10.1); Potassium 4.1 mmol/L (3.5-5.1)
[2018-06-28 05:43] LABS: Bilirubin, Total 0.4 mg/dL (0.2-1.0); Total Protein 5.2 g/dL (6.4-8.2)
[2018-06-28] MEDS: InsuLIN REG 1unit/0.01ml Soln (100units/ml) SC SCH ×2 (06:28→11:30)
[2018-06-28] MEDS: ACCU-CHEK COMFORT CURVE STRIP VI SCH ×3 (06:28→17:10)
[2018-06-28] MEDS ORDERED: SODIUM CHL 0.9% 1000 ML BAG XX ONE (07:00)
[2018-06-28] MEDS: HYDROcodone-ACET 5/325MG TAB PO PRN (07:43)
[2018-06-28] MEDS: Pro-Stat SF 30ml Vanilla PO SCH (07:43)
[2018-06-28] MEDS: SEVELAMER 800 MG TAB PO SCH ×2 (07:43→11:53)
--- NOTE | 2018-06-28 08:00 | NUR ---
Opening Shift Note Assumed care of patient, awake, alert and oriented X4. No S/S of distress/SOB, complains of posterior sacral pain, 8/. Tele# 20, sinus rhythm @ 76 bpm. Left upper arm Dialysis fistula with good bruit and thrill. Right upper arm single lumen midline, patent and saline locked, dressing intact. IV to left wrist, 22 gauge, patent and saline locked. Sacral wound with Optifoam dressing clean, dry and intact. Instructed on POC and to call for assist PRN, verbalized understanding. Bed locked, in lowest position, call light within reach, will continue to monitor for changes Q1hr and PRN.
[2018-06-28 09:00] VITALS: BP 160/70
[2018-06-28] MEDS: amLODIPine BESYLATE 5 MG TAB PO SCH (10:00)
[2018-06-28] MEDS: METOPROLOL TARTRATE 50 MG TAB PO SCH (10:00)
[2018-06-28] MEDS: DOCUSATE SOD 100 MG CAP PO SCH (10:27)
[2018-06-28] MEDS: B-COMPLEX W/ C & FOLIC ACID(NEPHROVITE TAB) PO SCH (10:28)
[2018-06-28] MEDS: PANTOPRAZOLE 40 MG TAB PO SCH (10:28)
[2018-06-28] MEDS: ASCORBIC ACID 500 MG TAB PO SCH (10:28)
--- NOTE | 2018-06-28 11:42 | NUR ---
ROUNDS Dr Amador at bedside for rounds, new orders received. Patient updated on plan of care, verbalized understanding.
[2018-06-28] MEDS ORDERED: FLEET MINERAL OIL ENEMA 133 ML PR ONE (11:45)
[2018-06-28 13:08] VITALS: BP 162/75
[2018-06-28] MEDS: HYDROCORTISONE 2.5% TOPICAL CREAM 30GM TUBE TOP SCH (15:43)
[2018-06-28 15:45] VITALS: BP 138/74
--- NOTE | 2018-06-28 16:19 | NUR ---
re-assessment Per Arturo at [facility] patient bed number has changed to bed 2 room 204. Patient will be transported to [facility] by General transport between 4-5pm. Patient verbalized understanding and agreed to discharge plan to [facility]. Addendum: 06/28/18 at 1622 by Alba MICHAUD Amended: Links added.
[2018-06-28 17:02] VITALS: BP 160/72
--- NOTE | 2018-06-28 17:31 | NUR ---
TRANSPORT General transport at bedside, loading patient onto gurney. Patient placed on 02@ 2 LPM via nasal cannula. All personal belongings sent with patient. No distress noted upon discharge.
[2018-06-28] MEDS ORDERED: Pro-Stat SF 30ml Vanilla PO SCH (18:00)
[2018-06-28] MEDS ORDERED: EPOETIN ALFA 10,000 UNIT/1 ML VIAL SC ONE (21:00)
== END 2018-06-28 18:10 | DRG 377 ==
LOC: ER 12:14 → EDBD 12:14 → TELE 19:09 → TELE-WESTW 20:17
PROVIDERS: ADMIT Nurse Practitioner Acute Care; ATTEND Internal Medicine
PROC: 5A1D70Z Performance of Urinary Filtration, Intermittent, Less than 6 Hours Per Day (ICD-10-PCS; 2018-06-21)
PROC: 5A1D70Z Performance of Urinary Filtration, Intermittent, Less than 6 Hours Per Day (ICD-10-PCS; 2018-06-23)
PROC: 30233N1 Transfusion of Nonautologous Red Blood Cells into Peripheral Vein, Percutaneous Approach (ICD-10-PCS; 2018-06-23)
PROC: 0W3P8ZZ Control Bleeding in Gastrointestinal Tract, Via Natural or Artificial Opening Endoscopic (ICD-10-PCS; principal; 2018-06-23 16:30)
PROC: 5A1D70Z Performance of Urinary Filtration, Intermittent, Less than 6 Hours Per Day (ICD-10-PCS; 2018-06-26)
PROC: 5A1D70Z Performance of Urinary Filtration, Intermittent, Less than 6 Hours Per Day (ICD-10-PCS; 2018-06-28)
DX: K62.5 Hemorrhage of anus and rectum (principal); N18.6 End stage renal disease; E43 Unspecified severe protein-calorie malnutrition; K57.32 Diverticulitis of large intestine without perforation or abscess without bleeding; D62 Acute posthemorrhagic anemia; K55.1 Chronic vascular disorders of intestine; K62.89 Other specified diseases of anus and rectum; I13.10 Hypertensive heart and chronic kidney disease without heart failure, with stage 1 through stage 4 chronic kidney disease, or unspecified chronic kidney disease; D50.9 Iron deficiency anemia, unspecified; E11.22 Type 2 diabetes mellitus with diabetic chronic kidney disease; E11.21 Type 2 diabetes mellitus with diabetic nephropathy; E27.8 Other specified disorders of adrenal gland; I25.10 Atherosclerotic heart disease of native coronary artery without angina pectoris; J45.909 Unspecified asthma, uncomplicated; M43.16 Spondylolisthesis, lumbar region; Z79.84 Long term (current) use of oral hypoglycemic drugs; Z79.899 Other long term (current) drug therapy; Z68.31 Body mass index [BMI] 31.0-31.9, adult; Z90.710 Acquired absence of both cervix and uterus; Z99.2 Dependence on renal dialysis; Z90.49 Acquired absence of other specified parts of digestive tract
CPT/HCPCS: 36415; 71045; 74176; 74177; 80048; 80053; 81001; 82306; 82570; 82728; 82962; 83540; 83550; 83605; 83880; 83970; 84100; 84156; 84300; 84484; 85014; 85018; 85025; 85610; 85730; 86850; 86900; 86901; 86920; 87040; 87081; 90935; 96361; 96374; 97110; 97116; 97530; G0378; J0885; J1815; J2250; J2405; J3490

== ENCOUNTER 2020-03-10 00:02 | Inpatient (IN) | payer MEDICARE, OTHER ==
[~2020-03-10] VITALS: Ht 162.6 cm; Wt 81.6 kg
[~2020-03-10 00:02] MED LIST changes: +AMLO-496 PO; -AMLO10TA12 PO; -ATEN-60 PO; -BUME2TAB3 PO; -CELE200C PO; -FURO80TA3 PO; +GLIM-5 PO; -GLIM1TAB2 PO; -LOSA-49 PO; -METF-371 PO
[2020-03-10 01:41] LABS: Basophils # (auto) 0 10 ^3/uL (0-0.2); Eosinophils # (auto) 0.1 10 ^3/uL (0-0.8); Hemoglobin 7.5 g/dL (12.2-16.2); Lymphocytes # (auto) 0.8 10 ^3/uL (0.4-5.4); White Blood Cell 5.6 10^3/uL (4.4-10.8)
[2020-03-10 01:43] LABS: Basophils % (auto) 0.5 % (0.0-2.0); Eosinophils % (auto) 1.6 % (0.0-7.0); Hematocrit 23.6 % (36.0-46.0); Lymphocytes % (auto) 13.8 % (10.0-50.0); Mean Corpuscular Hgb Conc. 31.6 g/dL (32.0-36.0); Mean Corpuscular Volume 91.7 fL (80.0-100.0); Monocytes # (auto) 0.4 10 ^3/uL (0-1.3); Monocytes % (auto) 6.4 % (0.0-12.0); Neutrophils # (auto) 4.4 10 ^3/uL (1.6-8.6); Neutrophils % (auto) 77.7 % (37.0-80.0); Nucleated Red Blood Cells % 0.1 %; Red Blood Cells 2.58 10^6/uL (4.0-5.20); Red Cell Distribution Width 15.2 % (11.8-14.3)
[2020-03-10 01:59] LABS: Albumin 3.2 g/dL (3.4-5.0); BUN/Creatinine Ratio 15.4; Calcium 8.1 mg/dL (8.5-10.1); Magnesium 2.4 mg/dL (1.6-2.6); Potassium 4.6 mmol/L (3.5-5.1)
[2020-03-10] MEDS ORDERED: FUROSEMIDE 20 MG/2 ML VIAL IV ONE (02:00)
[2020-03-10 02:01] LABS: INR 1.13 (0.9-1.15); Partial Thromboplastin Time 32.8 sec (23.0-31.2)
[2020-03-10 02:04] LABS: Bilirubin, Total 0.7 mg/dL (0.2-1.0); Total Protein 7.1 g/dL (6.4-8.2)
[2020-03-10] MEDS ORDERED: DEXTROSE 50% SYRINGE 50 ML IV ONE (02:07)
[2020-03-10] MEDS ORDERED: DEXTROSE (50%) 50ML SYRG IV ONE (02:30)
[2020-03-10] MEDS ORDERED: ENOXAPARIN SOD 80 MG/0.8ML SYRINGE SC ONE (03:30)
[2020-03-10] MEDS ORDERED: ACETAMINOPHEN 325 MG TAB PO PRN (06:45)
[2020-03-10] MEDS ORDERED: ONDANSETRON HCL 4 MG/2 ML VIAL IV PRN (06:45)
[2020-03-10] MEDS ORDERED: ALBUTEROL SULF HFA 90MCG INH 200DOSE IN PRN (06:45)
[2020-03-10] MEDS ORDERED: NITROGLYCERIN 0.4 MG SL TAB SL PRN (06:45)
[2020-03-10] MEDS ORDERED: DEXTROSE (50%) 50ML SYRG IV PRN (06:45)
[2020-03-10] MEDS ORDERED: MORPHINE SULFATE INJECTION 2 MG/ML SYRG IV PRN (06:45)
[2020-03-10] MEDS: InsuLIN REG 1unit/0.01ml Soln (100units/ml) SC SCH ×3 (07:00→17:04)
[2020-03-10] MEDS: ACCU-CHEK COMFORT CURVE STRIP VI SCH ×3 (07:11→17:01)
[2020-03-10] MEDS ORDERED: DEXTROSE 10% 1,000 ML IV ONE (07:30)
[2020-03-10 07:44] LABS: Magnesium 2.4 mg/dL (1.6-2.6)
[2020-03-10 07:53] LABS: CRP High Sensitivity 4.09 mg/dL (< 0.3)
[2020-03-10] MEDS ORDERED: DEXTROSE 10% 1,000 ML IV SCH (08:00)
[2020-03-10] MEDS ORDERED: amLODIPine BESYLATE 5 MG TAB PO SCH (10:00)
[2020-03-10] MEDS ORDERED: METOPROLOL SUCCINATE XL 50 MG TAB PO SCH (10:00)
[2020-03-10] MEDS ORDERED: ZINC SULFATE 220mg CAP or TAB PO SCH (10:00)
[2020-03-10] MEDS ORDERED: ASPirin 81 mg TAB PO SCH (10:00)
[2020-03-10] MEDS ORDERED: ASCORBIC ACID 1,000 MG TAB PO SCH (10:00)
[2020-03-10] MEDS ORDERED: DOXYCYCLINE 100MG/250ML 250 ML IV SCH (10:00)
[2020-03-10] MEDS ORDERED: CHOLECALCIFEROL (VITD3) 2,000 UNIT CAP/TAB PO SCH (10:00)
[2020-03-10] MEDS ORDERED: DexAMETHasone SOD PHOS 10MG/1ML VIAL INJ IV SCH (10:00)
[2020-03-10] MEDS ORDERED: ENOXAPARIN SOD 40 MG/0.4 ML SYRINGE SC SCH ×2 (10:00)
[2020-03-10 12:33] LABS: Urine Bacteria MANY /hpf (None Seen); Urine Blood 2+ /uL (Negative); Urine WBC 18892 /hpf (0 - 5); Urine WBC Clumps PRESENT /hpf (None Seen)
[2020-03-10 12:35] LABS: Urine Specific Gravity 1.015 (1.001-1.035)
[2020-03-10] MEDS ORDERED: GLIP5TAB12 PO (12:42)
[2020-03-10] MEDS ORDERED: METO25TA5 PO (12:43)
[2020-03-10] MEDS ORDERED: ATOR20TA50 PO (12:44)
[2020-03-10] MEDS ORDERED: PRAZ5CAP25 PO (12:46)
[2020-03-10] MEDS ORDERED: ACET325T10 PO (12:47)
[2020-03-10] MEDS ORDERED: ASPI81TA92 PO (12:49)
[2020-03-10] MEDS ORDERED: ALBUAER3 IN (12:49)
[2020-03-10] MEDS ORDERED: BISA10SU45 RE (12:51)
[2020-03-10] MEDS ORDERED: CLON0.2T PO (12:51)
[2020-03-10] MEDS ORDERED: NIFE90TA49 PO (12:53)
[2020-03-10] MEDS ORDERED: MELA3TAB27 PO (12:53)
[2020-03-10] MEDS ORDERED: B-CO1TAB44 PO (12:53)
[2020-03-10] MEDS ORDERED: SEVE800T8 PO (12:54)
[2020-03-10] MEDS ORDERED: ONDA-144 PO (12:55)
[2020-03-10] MEDS ORDERED: HYDR-4833 PO (12:56)
[2020-03-10] MEDS ORDERED: INSLISPI SC (12:57)
[2020-03-10] MEDS ORDERED: NITR-52 PO (12:59)
[2020-03-10] MEDS ORDERED: POM IN (13:08)
[2020-03-10] MEDS ORDERED: FUROSEMIDE 100 MG/10ML VIAL IV ONE (15:45)
[2020-03-10] MEDS ORDERED: cefTRIAXone 1GM/50ML D5W 50 ML IV ONE (15:45)
[2020-03-10] MEDS ORDERED: LORazepam 2MG/ML-1ML VIAL IV ONE (16:15)
[2020-03-10] MEDS ORDERED: HALOPERIDOL LACTATE 5 MG/ML INJ VIAL IM ONE (16:15)
[2020-03-10 16:42] VITALS: BP 129/62
[2020-03-10] MEDS ORDERED: ATROPINE SULFATE 1 MG/1 ML VIAL ONE (17:28)
[2020-03-10] MEDS ORDERED: ATROPINE SULF 1 MG/10ml SYR IV ONE (17:30)
[2020-03-10] MEDS ORDERED: SODIUM BICARBONATE 8.4% INJ 50ML SYRINGE IV ONE (17:35)
[2020-03-10] MEDS ORDERED: EPINEPHrine HCL 1 MG/10 ML SYRG IV ONE (17:35)
[2020-03-10] MEDS ORDERED: ATORVASTATIN 20 MG TAB PO SCH (22:00)
[2020-03-11] MEDS ORDERED: SODIUM CHL 0.9% 1000 ML BAG XX ONE (07:00)
[2020-03-11] MEDS ORDERED: cefTRIAXone 1GM/50ML D5W 50 ML IV SCH (09:00)
[2020-03-11] MEDS ORDERED: ASPirin 81 mg TAB PO SCH (10:00)
[2020-03-11] MEDS ORDERED: EPOETIN ALFA 10,000 UNIT/1 ML VIAL SC ONE (21:00)
== END 2020-03-10 17:36 | DRG 177 ==
LOC: EDBD 00:02 → ER 00:06 → TELE 00:07
PROVIDERS: ADMIT Nurse Practitioner; ATTEND Internal Medicine
DX: U07.1 COVID-19 (principal); N18.6 End stage renal disease; J12.82 Pneumonia due to coronavirus disease 2019; I21.A1 Myocardial infarction type 2; I50.33 Acute on chronic diastolic (congestive) heart failure; J96.01 Acute respiratory failure with hypoxia; J44.0 Chronic obstructive pulmonary disease with (acute) lower respiratory infection; I13.2 Hypertensive heart and chronic kidney disease with heart failure and with stage 5 chronic kidney disease, or end stage renal disease; E11.649 Type 2 diabetes mellitus with hypoglycemia without coma; E66.9 Obesity, unspecified; E78.5 Hyperlipidemia, unspecified; D63.1 Anemia in chronic kidney disease; E11.22 Type 2 diabetes mellitus with diabetic chronic kidney disease; E11.51 Type 2 diabetes mellitus with diabetic peripheral angiopathy without gangrene; Z66 Do not resuscitate; Z79.4 Long term (current) use of insulin; Z90.710 Acquired absence of both cervix and uterus; Z99.2 Dependence on renal dialysis; Z90.49 Acquired absence of other specified parts of digestive tract
CPT/HCPCS: 36415; 51702; 71045; 80053; 81001; 82306; 82728; 82962; 83036; 83605; 83615; 83735; 83880; 84443; 84484; 85025; 85379; 85610; 85730; 86141; 86850; 86900; 86901; 87040; 87426; 92610; 93005; 93306; 96365; 96367; 96372; 96375; G0378; J0461; J0696; J1100; J3490